=== PATIENT | male | born 1960 | race Two or more races ===

== ENCOUNTER 2023-11-20 08:44 | Outpatient (OUT) | payer OTHER, SELFPAY ==
--- NOTE | 2023-11-20 | XR_ITS ---
The [address] [address] Patient Name: EYAD VASQUEZ MRN: [id number] date: 1960 Sex: M Assigned Patient Location: Current Patient Location: Accession/Order Number: [id number] Exam Date: 11/20/2023 09:00 Report Date: 11/20/2023 09:38 At the request of: GURMEET OAKES Procedure: XR foot RT min 3V PROCEDURE: XR foot RT min 3V, XR ankle RT min 3V COMPARISON: None. HISTORY: RIGHT FOOT PAIN FINDINGS: BONES:No acute fracture or dislocation. Severe degenerative changes of the tibiotalar joint with marked bony remodeling qzzu-uo-mjzh articulation and subchondral mixed lytic and sclerotic changes. There is eversion of the hindfoot in relation to the tibial plafond measuring 27 degrees . Moderate hallux valgus. 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 Mild plantar enthesopathic spurring the calcaneus SOFT TISSUES:Negative. No visible soft tissue swelling. EFFUSION:None visible. OTHER: Negative. XR/XR foot RT min 3V IMPRESSION: Severe hindfoot degenerative changes with bony remodeling and eversion Electronically authenticated by: ALICJA ALEJANDRA Date: 11/20/2023 09:38
--- NOTE | 2023-11-20 | XR_ITS ---
The [address] [address] Patient Name: EYAD VASQUEZ MRN: [id number] date: 1960 Sex: M Assigned Patient Location: Current Patient Location: Accession/Order Number: [id number] Exam Date: 11/20/2023 09:00 Report Date: 11/20/2023 09:38 At the request of: GURMEET OAKES Procedure: XR ankle RT min 3V PROCEDURE: XR foot RT min 3V, XR ankle RT min 3V COMPARISON: None. HISTORY: RIGHT FOOT PAIN FINDINGS: BONES:No acute fracture or dislocation. Severe degenerative changes of the tibiotalar joint with marked bony remodeling enul-gk-utjv articulation and subchondral mixed lytic and sclerotic changes. There is eversion of the hindfoot in relation to the tibial plafond measuring 27 degrees . Moderate hallux valgus. 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 Mild plantar enthesopathic spurring the calcaneus SOFT TISSUES:Negative. No visible soft tissue swelling. EFFUSION:None visible. OTHER: Negative. XR/XR ankle RT min 3V IMPRESSION: Severe hindfoot degenerative changes with bony remodeling and eversion Electronically authenticated by: ALICJA ALEJANDRA Date: 11/20/2023 09:38
== END 2023-11-20 08:45 | disposition home or self-care (01) ==
LOC: EC 08:44
PROVIDERS: Visit Provider Physician Assistant
DX: M79.671 Pain in right foot (principal); M25.571 Pain in right ankle and joints of right foot; M19.071 Primary osteoarthritis, right ankle and foot
CPT/HCPCS: 73610; 73630

== ENCOUNTER 2023-12-24 08:18 | Outpatient (OUT) | payer OTHER, SELFPAY ==
--- NOTE | 2023-12-24 08:30 | CA_ITS ---
The [facility] Test Date: 2023-12-24 Pat Name: EYAD HOSKINS Department: Room: - Gender: Male Development Officer: : 1960 Requested By: Denisha Henson Order Number: [id number] Reading MD: ARACELI EMERY Interpretive Statements Biphasic doppler waveforms PVR waveforms with normal upstroke, amplitude and dicrotic notch Right: - no significant pressure gradient between cuffs - normal ART Left: - no significant pressure gradient between cuffs - normal ART Impression: Normal arterial evaluation of the lower extremities without hemodynamic impairment of the B/L lower extremity at rest. (right ART 1.12, left ART 1.16) Electronically Signed On 12-25-2023 15:16:07 EDT by ARACELI EMERY
--- NOTE | 2023-12-24 09:47 | CT_ITS ---
[place] [id number] Patient Name: EYAD HOSKINS MRN: [id number] date: 1960 Sex: M Assigned Patient Location: CARD Current Patient Location: CARD Accession/Order Number: [id number] Exam Date: 12/24/2023 09:55 Report Date: 12/24/2023 11:35 At the request of: GURMEET OAKES Procedure: CT ankle RT wo con EXAMINATION: CT ankle RT wo con HISTORY: Avascular Necrosis Right Talus, Right Ankle Arthritis COMPARISON: Plain x-ray 11/20/2023 TECHNIQUE: Multi-planar CT images were created without IV contrast. Dose reduction techniques were achieved by using automated exposure control and/or adjustment of mA and/or kV according to patient size and/or use of iterative reconstruction technique. FINDINGS: BONES: No acute fracture. Severe degenerative changes of the tibiotalar joint with bony remodeling partial talus collapse and marked subchondral cystic changes. There is 8 mm lateral displacement of the talus in relation to the tibial plafond and with eversion of the hindfoot in relation to the tibia and fibula. Additional degenerative changes of the mid and posterior talocalcaneal joint SOFT TISSUES: Diffuse soft tissue swelling EFFUSION: Tibiotalar joint effusion OTHER: Negative. CT/CT ankle RT wo con IMPRESSION: Marked degenerative changes of the hindfoot with bony remodeling and partial collapse of the talus Electronically authenticated by: ALICJA ALEJANDRA Date: 12/24/2023 11:35
== END 2023-12-24 08:19 | disposition home or self-care (01) ==
LOC: CARD 08:22
PROVIDERS: Visit Provider Physician Assistant
DX: M87.9 Osteonecrosis, unspecified (principal); R09.89 Other specified symptoms and signs involving the circulatory and respiratory systems
CPT/HCPCS: 73700; 93923

== ENCOUNTER 2024-04-27 08:55 | Outpatient (OUT) | payer OTHER, SELFPAY ==
--- NOTE | 2024-04-27 | XR_ITS ---
The [address] [address] Patient Name: EYAD HOSKINS MRN: [id number] date: 1960 Sex: M Assigned Patient Location: Current Patient Location: Accession/Order Number: [id number] Exam Date: 04/27/2024 08:55 Report Date: 04/27/2024 15:52 At the request of: GURMEET OAKES Procedure: XR ankle RT min 3V EXAM: XR ankle RT min 3V HISTORY: RIGHT ANKLE PAIN COMPARISON: CT right ankle study dated 12/24/2023 TECHNIQUE: 3 upright views of the right ankle were obtained. FINDINGS: Marked narrowing of the ankle joint with associated degenerative subchondral cystic changes and sclerosis. Approximately 1.2 cm posterior offset of the articular surface of the distal tibia in relation to the talus similar to the prior study. Interval narrowing between the distal fibula and the calcaneus with adjacent degenerative subchondral cystic changes and sclerosis. Small plantar calcaneal spur. No convincing evidence of acute fracture or dislocation. Moderate soft tissue swelling laterally with mild swelling medially. XR/XR ankle RT min 3V IMPRESSION: Right ankle study demonstrates marked degenerative changes similar to the prior exam. Follow-up as needed. Electronically authenticated by: LALITO ÁLVAREZ Date: 04/27/2024 15:52
--- OUTSIDE RECORDS SUMMARY | 2024-04-27 09:15 | XMS_ITS | CCD ---
Demographics Address [address] [place] [address] Preferred Language en Marital Status Single Congregational Affiliation Unknown Race Unknown Ethnic Group or Author Organization [facility] Inform ion Partnership [facility] Care Team Providers Care Technical Services Specialist Name Role Phone XIMENA KUMAR Admitting Unavailable XIMENA KUMAR Attending Unavailable [facility] Primary Care Unava ilable XIMENA KUMAR Consulting Unavailable CHEPE POZO Consulting Unavailable AngNitza Browning Primary Care Provider XIMENA KUMAR Attending Unavailable XIMENA KUMAR Attending Unavailable XIMENA KUMAR Attending Unavailable IRINA LEI Attending Unavailable NITZA BREAUX Referring Unavailable IRINA LEI Referring Unavailable XIMENA KUMAR Attending Unavailable XIMENA KUMAR Attending Unavailable XIMENA KUMAR Referring Unavailable XIMENA KUMAR Attending Unavailable XIMENA KUMAR Attending Unavailable XIMENA KUMAR Attending Unavailable Medications Current Medications Medication Drug Class(es) Dates Sig (Normalized) Sig (Original) amLODIPine 2.5 mg oral tablet (1 source) Dihydropyridine Calcium Channel Cynthia Start: 01-16-2023 take 1 tablet by mouth once daily amLODIPine (NORVASC) 2.5 mg tablet 1 tablet Orally Once a day for 30 days 0 01/16/2023 Active ferrous sulfate 325 mg oral tablet (1 source) Start: 01-16-2023 take 1 tablet by mouth three times weekly ferrous sulfate 325 (65 FE) mg tablet TAKE 1 TABLET BY MOUTH 3 TIMES A WEEK 0 01/16/2023 Active losartan potassium 25 mg oral tablet (1 source) Angiotensin 2 Receptor Cynthia Start: 11-21-2022 take 1 tablet by mouth once daily losartan (COZAAR) 25 mg tablet TAKE 1 TABLET BY MOUTH EVERY DAY FOR 30 DAYS 0 11/21/2022 Active meloxicam 15 mg oral tablet (1 source) Nonsteroidal Anti-inflammatory Drug Start: 01-19-2023 take 1 tablet by mouth once daily meloxicam (MOBIC) 15 mg tablet TAKE 1 TABLET BY MOUTH EVERY DAY FOR 30 DAYS 0 01/19/2023 Active omeprazole 40 mg delayed release oral capsule (1 source) Proton Pump Inhibitor omeprazole (PriLOSEC) 40 mg capsule TAKE 1 CAPSULE BY MOUTH 30 MINUTES BEFORE MORNING MEAL EVERY DAY FOR 30 DAYS Orally Once a day for 30 days 0 Active tamsulosin hydrochloride 0.4 mg oral capsule (1 source) alpha-Adrenergic Cynthia Start: 06-16-2023 take 1 capsule by mouth once daily tamsulosin (FLOMAX) 0.4 mg capsule TAKE 1 CAPSULE BY MOUTH NIGHTLY FOR 90 DAYS. 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; Translations: [OSTEOCHNDRT DISSECANS RT ANK JNT FT] Onset: 10-08-2021 Chronic Past or Other Problems Problem Classification Problem Date Documented Da te Episodic/Chronic Deficiency and other anemia (1 source) Anemia; Translations: [Anemia, unspecified] Onset: 0 07-17-2020 Episodic Gastrointestinal hemorrhage (5 sources) Lower gastrointestinal hemorrhage; Translations: [Gastrointestinal hemorrhage, unspecified] Onset: 0 07-14-2020 Episodic Inflammatory conditions of male genital organs (1 source) Orchitis; Translations: [Orchitis] Onset: 3 05-21-2023 Episodic Mood disorders (1 source) Mood disorders Onset: 0 07-21-2020 Other screening for suspected conditions (not mental disorders or infectious disease) (1 source) Raised prostate specific antigen; Translations: [Elevated prostate specific antigen [PSA]] Onset: 3 05-27-2023 Episodic Results Test Name Value Interpretation Reference Range Facil ity MRI ANKLE RT WO CONon 2021 MRI ANKLE RT WO CON EXAM: MRI ANKLE RT WO CON. HISTORY: Osteochondritis dissecans. Right ankle pain and swelling for 6 months. COMPARISON: None. TECHNIQUE: Multiplanar and multisequence imaging of the right ankle was performed without contrast. FINDINGS: Severe degenerative change/osteoarthritis involves the tibiotalar joint with extensive high-grade and full-thickness articular cartilage loss throughout a majority of the central, anterior and lateral aspect of the tibiotalar joint including involvement of the distal tibia and talar dome. There is a moderate to large tibiotalar joint effusion. Moderate to marked bone marrow edema is present in the distal tibia and the talus suspicious for stress response and/or reactive edema. No loose or unstable osteochondral fragment is identified involving the talar dome with cystic change in the talar dome. There is also moderate degenerative change of the posterior facet of the subtalar joint with joint space narrowing and spurring. Mild degenerative change is present throughout the midfoot. No acute fracture is visualized. There is mild bone marrow edema in the distal fibula and medial malleolus suspicious for reactive edema or stress response. The Achilles tendon is intact with a normal insertion onto the calcaneus. There is lateral dislocation of the peroneal tendons with the peroneal tendons located lateral to the distal fibula. No well-defined peroneal tendon tear is identified, however. Intermediate signal of the posterior tibialis tendon mild thickening of the tendon is consistent with mild to moderate tendinopathy. There is irregularity, fraying and likely low-grade partial thickness tearing of the posterior tibialis tendon in the inframalleolar portion. Moderate fluid tracks along the posterior tibialis tendon consistent with associated tenosynovitis. Flexor and extensor tendons otherwise appear intact. Several areas of corticated bony signal along the anterior and anteroinferior margin of the distal fibula are likely related to sequela of remote trauma. There is thickening, irregularity and increased signal of the anterior talofibular ligament consistent with a prior high-grade sprain. There is also evidence of a moderate prior sprain of the anteroinferior tibiofibular ligament as well as the calcaneofibular ligament with intermediate signal and thickening of the calcaneofibular ligament. There also appears to be evidence of a prior sprain of the deep fibers of the deltoid ligament. There is no cystic or solid mass in the region of the tarsal tunnel. There is no acute abnormality involving the plantar fascia. IMPRESSION: 1. There is severe degenerative change/osteoarthritis involving the tibiotalar joint with extensive high-grade and full-thickness articular cartilage loss and marked joint space narrowing with xryx-vp-sehv contact. 2. There is a moderate to large tibiotalar joint effusion with moderate to marked bone marrow edema in the distal tibia and talus suspicious for stress response and/or reactive edema. No loose or unstable osteochondral fragment is identified involving the talar dome. 3. There is mild to moderate tendinopathy with fraying and likely low-grade partial-thickness tearing of the inframalleolar portion of the posterior tibialis tendon with moderate associated tenosynovitis. 4. There is lateral dislocation of the peroneal tendons which are located lateral to the distal fibula. There is mild tenosynovitis involving the peroneal tendons. 5. Prior high-grade sprain of the anterior talofibular ligament as well as prior moderate-grade sprain of the calcaneofibular ligament and anteroinferior tibiofibular ligament. Electronically authenticated by: CHEPE POZO Date: 2021-10-08 14:08 [facility] Encounters Encounter Date Encounter Type Care Provider Facility Start: 04-15-2024 End: 04-15-2024 ambulatory XIMENA KUMAR Not Available Start: 03-11-2024 End: 03-11-2024 ambulatory XIMENA KUMAR Not Available Start: 02-19-2024 End: 02-19-2024 ambulatory XIMENA KUMAR Not Available Start: 02-05-2024 End: 02-05-2024 ambulatory XIMENA KUMAR Not Available Start: 11-25-2023 Telephone encounter Ivet Tamayo UNDERWRITING CONSULTANT-PUBLIC POLICY PROFESSOR Work Phone: [facility] Start: 11-11-2023 End: 11-11-2023 ambulatory IRINA LEI Not Available Start: 11-06-2023 End: 11-06-2023 ambulatory XIMENA KUMAR Not Available Start: 09-11-2023 End: 09-11-2023 ambulatory XIMENA KUMAR Not Available Start: 08-07-2023 End: 08-07-2023 ambulatory XIMENA KUMAR Not Available Start: 07-10-2023 End: 07-10-2023 ambulatory XIMENA KUMAR Not Available Start: 10-08-2021 End: 10-09-2021 ambulatory XIMENA KUMAR Facility: Plan of Treatment Date Care Activity Detail Author Start: 08-13-2024 Tobacco Counseling Tobacco Counseling [facility] Start: 05-21-2024 Adult BMI Screening Adult BMI Screening [facility] Start: 05-21-2024 Tobacco Screening Tobacco Screening [facility] Start: 04-25-2024 Influenza vaccination Influenza Vaccine [facility] Start: 04-25-2023 COVID-19 Vaccine ( season) COVID-19 Vaccine ( season) [facility] Start: 2011 Administration of varicella zoster vaccine Zoster (Shingles) Vaccine (1 of 2) [facility] Start: 1980 DTaP,Tdap and Td Vaccines (1 - Tdap) DTaP,Tdap and Td Vaccines (1 - Tdap) [facility] Start: 1979 Adult BMI Follow Up Plan Adult BMI Follow Up Plan [facility] Start: 1973 Depression Screening Depression Screening [facility] Immunizations Immunization Date Immunization Notes Care Provider Fa cility 05-22-2022 influenza virus vacc ine, unspecified formulation Ivet Tamayo UNDERWRITING CONSULTANT-PUBLIC POLICY PROFESSOR Work Phone: [facility] 07-14-2020 influenza, injectabl e, quadrivalent, preservative free Ivet Tamayo UNDERWRITING CONSULTANT-PUBLIC POLICY PROFESSOR Work Phone: [facility] 07-14-2020 pneumococcal polysaccharide vaccine, 23 valent Ivet Tamayo UNDERWRITING CONSULTANT-PUBLIC POLICY PROFESSOR Work Phone: [facility] Payers Date Payer Category Payer Medicaid [employer] HMO [id number] 2022-Present [phone] [address] [place] [address] [id number] 2019 Medicaid [id number] 1960 Unknown [id number] 1960 Unknown [id number] 1960 Unknown [id number] [id number] 1960 Unknown [id number] [id number] 1960 Unknown [id number] [id number] 1960 Unknown [id number] 2.16.840.1.612542.3.579.2.9 1960 Unknown [id number] [id number] 1960 Unknown [id number] [id number] 1960 Unknown [id number] 2.16.840.1.813325.3.579.2.9 1960 Unknown [id number] [id number] 1960 Unknown [id number] 2.16.840.1.163732.3.579.2.9 1960 Unknown [id number] [id number] 1960 Unknown [id number] [id number] 1958 Unknown [id number] Social History Date Type Detail Facility Start: 02-11-2023 Tobacco smoking stat [facility] Occasional tobacco smoker [facility] History of tobacco use Cigarette Smoker [facility] [place] Start: 10-05-2020 End: 02-11-2023 Cigarettes smoked current (pack per day) - Reported 1.5 [facility] Start: 02-11-2023 Tobacco use and exposure Smokeless tobacco non-user [facility] Start: 05-21-2023 Alcohol intake Current drinke r of alcohol (finding) [facility] Start: 07-14-2020 End: 02-11-2021 Social connection and isolation panel [facility] In a typical week, h ow many times do you talk on the telephone with family, friends, or neighbors? [facility] How often to you hav e a drink containing alcohol? 2-3 time sa week [facility] How many standard drinks containing alcohol do you have on a typical day? 10 or more [facility] How often do you hav e 6 or more drinks on 1 occasion? Daily or almost daily [facility] How hard is it for y ou to pay for the very basics like food, housing, medical care, and heating Somewhat hard [facility] Do you feel stress - tense, restless, nervous, or anxious, or unable to sleep at night because your mind is troubled all the time - these days [OSQ] To some extent [facility] Start: 02-11-2023 Tobacco Comment only when drinking P [facility] Start: 07-17-2020 Alcohol Comment mostly beer. H as not had a drink since last Friday. [facility] Start: 1960 Sex Assigned At Not on file [facility] Goals Date Patient Goal Desired Activity /State Personal health goal Comment on above: Formatting of this n ote might be different from the original. Evaluation of progress towards goal: Abstain from etoh use Formatting of this n ote might be different from the original. Evaluation of progress towards goal: Weekly AA attendance Personal health goal Comment on above: Formatting of this n ote might be different from the original. Evaluation of progress towards goal: home Note 11-25-2023 Telephone Encounter - Robyn Betancourt - 11/25/2023 2:48 PM EDT Note Date & Type Note Facility 11-25-2023 Miscellaneous Notes Formattin g of this note might be different from the original. Called [facility] as we received a screening colonoscopy referral from Nitza Plaza NP notes say that had last colonoscopy in [place]. But upon looking into patient's chart, last colonoscopy was 07/15/[address] Abrams with a 5 year recall. Spoke to Emmie at [facility] and informed her of the recall, she states that she will let Nitza Breaux NP know. documented in this encounter [facility] Telephone encounter Note 11-25-2023 Telephone Encounter - Robyn Betancourt - 11/25/2023 2:48 PM EDT Note Date & Type Note Facility 11-25-2023 Telephone encount er Note Called [facility] as we received a screening colonoscopy referral from Nitza Plaza NP notes say that had last colonoscopy in [place]. But upon looking into patient's chart, last colonoscopy was 07/15/[address] Abrams with a 5 year recall. Spoke to Emmie at [facility] and informed her of the recall, she states that she will let Nitza Breaux NP know. [facility] Instructions Note Date & Type Note Facility Instructions Not on filedocumented in this en counter [facility] Summary Purpose Family History No Family History Records FoundNo Family History Records Found Advance Directives No Advanced Directives Records FoundLatest Code Status on File Code Status Date Activated Date Inactivated Comments Full Code 07/18/2020 2:20 AM 07/22/2020 1:11 PM Code Status History Code Status Date Activated Date Inactivated Comments Full Code 07/17/2020 2:41 PM 07/18/2020 12:03 AM Full Code 07/14/2020 10:54 AM 07/16/2020 12:06 AM Additional Source Comments (unrecognized sect ion and content) No Status Records FoundNo Status Records Found INFORMATION SOURCE (unrecogn ized section and content) DATE CREATED AUTHOR 10/12/2021 [facility] DATE CREATED AUTHOR AUTHOR'S ORGANIZ ATION 04/17/2024 [facility] dical Specialists [employer] Care Teams (unrecognized sec tion and content) Technical Services Specialist Relationship Specialty Start Date End Date Nitza Breaux, UNDERWRITING CONSULTANT-PUBLIC POLICY PROFESSOR [address] [place] [id number] PCP - General Family Medicine 01/27/23 FOR RECORDS PERTAINING TO PATIENTS WHO ARE OR HAVE BEEN ENROLLED IN A CHEMICAL DEPENDENCY/SUBSTANCEABUSE PROGRAM, SOME INFORMATION MAY BE OMITTED. This clinical summary was aggregated from multiple sources. Caution should be exercised in using it in the provision of clinical care. This summary normalizes information from multiple sources, and as a consequence, information in this document may materially change the coding, format and clinical context of patient data. In addition, data may be omitted in some cases. CLINICAL DECISIONS SHOULD BE BASED ON THE PRIMARY CLINICAL RECORDS. [employer] [facility]. provides no warranty or guarantee of the accuracy or completeness of information in this document.
== END 2024-04-27 08:56 | disposition home or self-care (01) ==
LOC: EC 08:55
PROVIDERS: Visit Provider Physician Assistant
DX: M87.071 Idiopathic aseptic necrosis of right ankle (principal)
CPT/HCPCS: 73610

== ENCOUNTER 2024-06-22 09:35 | Outpatient (OUT) | payer OTHER, SELFPAY ==
--- OUTSIDE RECORDS SUMMARY | 2024-06-22 09:41 | XMS_ITS | CCD ---
Demographics Address [address] [place] [address] Home Phone Mobile Phone Preferred Language en Marital Status Unknown Sabianist Affiliation Unknown Race Unknown Ethnic Group or Author Organization [facility] Care Team Providers Care Feather Edger Name Role Phone PAPI GARDINER Admitting Unavailable PAPI GARDINER Attending Unavailable [facility] Primary Care Unava ilable PAPI GARDINER Consulting Unavailable POZOCHEPE HENRIQUEZ Consulting Unavailable Nitza Real Primary Care Provider PAPI GARDINER Attending Unavailable PAPI GARDINER Attending Unavailable PAPI GARDINER Attending Unavailable IRINA LEI Attending Unavailable NITZA BREAUX Referring Unavailable IRINA LEI Referring Unavailable PAPI GARDINER Attending Unavailable PAPI GARDINER Attending Unavailable PAPI GARDINER Referring Unavailable PAPI GARDINER Attending Unavailable PAPI GARDINER Attending Unavailable PAPI GARDINER Attending Unavailable Unallocated , [facility] Provider Primary Care Provi marga Medications Current Medications Medication Drug Class(es) Dates Sig (Normalized) Sig (Original) amLODIPine 2.5 mg oral tablet (2 sources) Dihydropyridine Calcium Channel Cynthia Start: 01-16-2023 take 1 tablet by mouth once daily amLODIPine (Norvasc) 2.5 MG tablet 1 tablet Orally Once a day for 30 days 01/16/2023 Active ciclopirox 80 mg/ml topical solution (1 source) Start: 04-15-2024 ciclopirox (Penlac) 8 % solution Indications: Onychomycosis Apply topically at bedtime 6 mL 3 04/15/2024 Active ferrous sulfate 325 mg oral tablet (2 sources) Start: 01-16-2023 take 1 tablet by mouth three times weekly ferrous sulfate 325 (65 Fe) MG tablet 1 tablet Orally Three times a Week for 30 days 01/16/2023 Active losartan potassium 25 mg oral tablet (2 sources) Angiotensin 2 Receptor Cynthia Start: 11-21-2022 take 1 tablet by mouth once daily losartan (Cozaar) 25 MG tablet TAKE 1 TABLET BY MOUTH EVERY DAY FOR 30 DAYS 11/21/2022 Active meloxicam 15 mg oral tablet (3 sources) Nonsteroidal Anti-inflammatory Drug Start: 04-28-2024 End: 05-31-2024 take 1 tablet by mouth once daily meloxicam (Mobic) 15 MG tablet Indications: DJD (degenerative joint disease), ankle and foot, left , DJD (degenerative joint disease), ankle and foot, right TAKE 1 TABLET BY MOUTH EVERY DAY 30 tablet 05/31/2024 Active Start: 01-19-2023 take 1 tablet by adithya th once daily meloxicam (MOBIC) 15 mg tablet TAKE 1 TABLET BY MOUTH EVERY DAY FOR 30 DAYS 0 01/19/2023 Active omeprazole 40 mg delayed release oral capsule (2 sources) Proton Pump Inhibitor omeprazole (PriLOSEC) [address] capsule TAKE 1 CAPSULE BY MOUTH 30 MINUTES BEFORE MORNING MEAL EVERY DAY FOR 30 DAYS Orally Once a day for 30 days Active tamsulosin hydrochloride 0.4 mg oral capsule (1 source) alpha-Adrenergic Cynthia Start: 3 take 1 capsule by mouth once daily tamsulosin (FLOMAX) 0.4 mg capsule TAKE 1 CAPSULE BY MOUTH NIGHTLY FOR 90 DAYS. 90 capsule 0 06/16/2023 Active Problems Active Problems Problem Classification Problem Date Documented Date Episodic/Chronic Osteoarthritis (2 sources) Degenerative joint disease of ankle AND/OR foot; Translations: [Primary osteoarthritis, left ankle and foot] 05-30-2024 Chronic Other bone disease and musculoskeletal deformities (4 [...] loss and marked joint space narrowing with [id number] contact. 2. There is a moderate to [...] authenticated by: CHEPE POZO Date: 2021-10-08 14:08 [facility] Encounters Encounter Date Encounter Type Care Provider Facility Start: 05-30-2024 End: 05-31-2024 Refill Papi Gardiner DPM Work Phone: [facility] Comment on above: DJD (degenerative darion int disease), ankle and foot, left; DJD (degenerative joint disease), ankle and foot, right Start: 04-15-2024 End: 04-15-2024 ambulatory PAPI GARDINER Not Available Start: 03-11-2024 End: 03-11-2024 ambulatory PAPI GARDINER Not Available Start: 02-19-2024 End: 02-19-2024 ambulatory PAPI GARDINER Not Available Start: 02-05-2024 End: 02-05-2024 ambulatory PAPI A ABDIFATAH Not Available Start: 11-25-2023 Telephone encounter Ivet Tamayo [facility] Work Phone: [facility] Start: 11-11-2023 End: 11-11-2023 ambulatory IRINA LEI Not Available Start: 11-06-2023 End: 11-06-2023 ambulatory PAPI GARDINER Not Available Start: 09-11-2023 End: 09-11-2023 ambulatory PAPI GARDINER Not Available Start: 08-07-2023 End: 08-07-2023 ambulatory PAPI GARDINER Not Available Start: 07-10-2023 End: 07-10-2023 ambulatory PAPI GARDINER Not Available Start: 10-08-2021 End: 10-09-2021 ambulatory PAPI GARDINER Facility: Plan of Treatment Date Care Activity Detail Author Start: 08-13-2024 Tobacco Counseling Tobacco Counseling [facility] Start: 05-21-2024 Adult BMI Screening Adult BMI Screening [facility] Start: 05-21-2024 Tobacco Screening Tobacco Screening [facility] Start: 04-25-2024 Influenza vaccination [facility] Start: 04-25-2023 COVID-19 Vaccine ( season) COVID-19 Vaccine ( season) [facility] Start: 2011 Administration of varicella zoster vaccine Zoster (Shingles) Vaccine (1 of 2) [facility] Start: 1980 DTaP,Tdap and Td Vaccines (1 - Tdap) DTaP,Tdap and Td Vaccines (1 - Tdap) [facility] Start: 1979 Adult BMI Follow Up Plan Adult BMI Follow Up Plan [facility] Start: 1973 Depression Screening Depression Screening [facility] Start: 1961 Screening for malignant neoplasm of colon [facility] Immunizations Immunization Date Immunization Notes Care Provider Fa cility 09-06-2023 zoster vaccine recombinant Papi Gardiner DPM Work Phone: [facility] 07-06-2023 zoster vaccine recombinant Papi Gardiner DPM Work Phone: [facility] 05-22-2022 influenza, injectabl e, quadrivalent, preservative free Papi Abdifatah DPM Work Phone: [facility] 05-22-2022 influenza virus vacc ine, unspecified formulation Ivet Tamayo [facility] Work Phone: [facility] 07-14-2020 influenza, injectabl e, quadrivalent, preservative free Ivet Tamayo [facility] Work Phone: [facility] 07-14-2020 pneumococcal polysaccharide vaccine, 23 valent Ivet Tamayo [facility] Work Phone: [facility] Payers Date Payer Category Payer Medicaid [id number] 2019 Medicaid [id number] 1960 Unknown [id number] 2.16.84 [id number] 1960 Unknown [id number] 2.16.84 [id number] 1960 Unknown [id number] 2.16.84 [id number] 1961 Unknown [id number] 2.16.84 0.1.672641.3.579.2.1259 1961 Unknown [id number] 2.16.84 0.1.003047.3.579.2.1259 1961 Unknown [id number] 2.16.84 0.1.368706.3.579.2.1259 1961 Unknown [id number] 2.16.84 0.1.296721.3.579.2.1259 1961 Unknown [id number] 2.16.84 0.1.041783.3.579.2.1259 1961 Unknown [id number] 2.16.84 0.1.195374.3.579.2.1259 1961 Unknown [id number] 2.16.84 0.1.381470.3.579.2.1259 1961 Unknown [id number] 2.16.84 0.1.093802.3.579.2.1259 1961 Unknown [id number] 2.16.840 .[id number] 1961 Unknown [id number] 2.16.840 .[id number] 1959 Unknown [id number] Social History Date Type Detail Facility Start: 02-11-2023 End: 05-29-2023 Tobacco smoking status [facility] Occasional tobacco smoker [facility] History of tobacco use Cigarette Smoker [facility] Start: 02-11-2023 End: 04-15-2024 Cigarettes smoked current (pack per day) - Reported 1.5 [facility] Start: 02-11-2023 End: 05-29-2023 Tobacco use and exposure Smokeless tobacco non-user [facility] Start: 05-21-2023 End: 04-15-2024 Alcohol intake Current drinker of alcohol (finding) [facility] Start: 07-14-2020 End: 04-15-2024 Social connection and isolation panel [facility] In a typical week, how many times do you talk on the telephone with family, friends, or neighbors? Patient declined [facility] How often to you hav e a drink containing alcohol? 2-3 time sa week [facility] How many standard drinks containing alcohol do you have on a typical day? 10 or more [facility] How often do you hav e 6 or more drinks on 1 occasion? Daily or almost daily [facility] How hard is it for you to pay for the very basics like food, housing, medical care, and heating Somewhat hard [facility] Do you feel stress - tense, restless, nervous, or anxious, or unable to sleep at night because your mind is troubled all the time - these days [OSQ] To some extent [facility] Start: 02-11-2023 Tobacco Comment only when drinking [employer] [facility] Start: 07-17-2020 Alcohol Comment mostly beer. H as not had a drink since last Friday. [facility] Start: 1960 Sex Assigned At Not on file [employer] NEGATED: Highlighted rowStart: NINF History of tobacco use Passive smoker [facility] Goals Date Patient Goal Desired Activity /State [...] might be different from the original. Called [facility] as we received a screening colonoscopy referral from Nitza Plaza NP notes say that had last colonoscopy in [place]. But upon looking into patient's chart, last colonoscopy was 07/15/[address] Abrams with a 5 year recall. Spoke to Emmie at [facility] and informed her of the recall, she states that she will let Nitza Breaux NP know. documented in this encounter [facility] Telephone encounter Note 11-25-2023 Telephone Encounter - Robyn Betancourt - 11/25/2023 2:48 PM EDT Note Date & Type Note Facility 11-25-2023 Telephone encount er Note Called [facility] as we received a screening colonoscopy referral from Nitza Plaza NP notes say that had last colonoscopy in [place]. But upon looking into patient's chart, last colonoscopy was 07/15/[address] Abrams with a 5 year recall. Spoke to Emmie at [facility] and informed her of the recall, she states that she will let Nitza Breaux NP know. [facility] Evaluation note Note Date & Type Note Facility Evaluation note Diagnosis DJD (degenerative joint disease), ankle and foot, left DJD (degenerative joint disease), ankle and foot, right documented in this encounter [facility] Instructions Note Date & Type Note Facility Instructions Not on filedocumented in this en counter [facility] Summary Purpose Family History No Family History Records FoundNo Family History Records Found Advance Directives Latest Code Status on File Code Status Date [...] and content) DATE CREATED AUTHOR 10/12/2021 [facility] DATE CREATED AUTHOR AUTHOR'S ORGANIZ ATION 04/17/2024 [facility] EP[employer] Care Teams (unrecognized sec tion and content) Feather Edger Relationship Specialty Start Date End Date Nitza Breaux, [facility] [address] [place] [address] PCP - General Family Medicine 01/27/23 Feather Edger Relationship Specialty Start Date End Date Unallocated, Lit Brunson MD [address] [place] [address] PCP - General Family Medicine 08/07/23 Reason for Visit (unrecogniz ed section and content) Reason Comments Med Refill FOR RECORDS PERTAINING TO PATIENTS WHO ARE [...] BE BASED ON THE PRIMARY CLINICAL RECORDS. [employer] [facility]. provides no warranty or guarantee of the accuracy or completeness of information in this document.
--- NOTE | 2024-06-22 09:49 | ECG_ITS ---
[facility] Test Date: 2024-06-22 Pat Name: EYAD HOSKINS Department: Room: - Gender: Male [employer]: : 1960 Requested By: JG CARRASQUILLO Order Number: [id number] Reading MD: ARACELI EMERY Measurements Intervals [place] Rate: 62 P: 42 TN: 192 QRS: 35 QRSD: 89 T: 47 QT: 384 QTc: 391 Interpretive Statements SINUS RHYTHM No previous ECG available for comparison Electronically Signed On 06-22-2024 23:03:27 EDT by ARACELI EMERY
[2024-06-22 11:29] LABS: Basophils Percent Auto 0.6 % (0.2-2.0); Eosinophils Absolute Auto 0.3 10^3/uL (0.0-0.7); Hemoglobin 15.1 g/dL (14.0-18.0); Immature Granulocytes Abs Auto 0.03 10^3/uL (0.00-0.03); Immature Granulocytes Pct Auto 0.6 % (0.0-0.5); Lymphocytes Percent Auto 20.6 % (20.5-60.0); Mean Corpuscular HGB Conc 33.6 g/dL (29.9-35.2); Mean Corpuscular Hemoglobin 32.7 pg (25.9-34.0); Mean Corpuscular Volume 97.4 fL (80.0-94.0); Mean Platelet Volume 9.9 fL (9.5-13.5); Monocytes Absolute Auto 0.4 10^3/uL (0.3-0.8); Monocytes Percent Auto 8.6 % (1.7-12.0); Neutrophils Absolute Auto 3.2 10^3/uL (1.4-6.5); Neutrophils Percent Auto 63.6 % (43.0-75.0); Platelet Count 169 10^3/uL (150-450); Red Blood Count 4.62 10^6/uL (4.70-6.10); Red Cell Distribution Width 12.9 % (11.0-15.0)
[2024-06-22 11:44] LABS: Anion Gap 11.7; Carbon Dioxide 29.1 mmol/L (21.0-32.0); Chloride 105 mmol/L (98-107); Estimated GFR (African America >60 (>=60 mL/min/1.73m^2); Estimated GFR (Non-African Ame >60 (>=60 mL/min/1.73m^2); Glucose 83 mg/dL (74-106); Potassium 4.8 mmol/L (3.5-5.1); Sodium 141 mmol/L (136-145)
--- NOTE | 2024-06-22 12:13 | P.GSHP_ITS ---
History of Present Illness History of Present Illness Chief complaint: primary osteoarthritis right ankle Narrative: Patient presents for preadmission testing. The patient is Icelandic speaking and an retail performance specialist is used for the entirety of the visit. The patient reports a long history of right ankle and foot pain with instability. He wears a brace, uses a cane, and takes meloxicam with some relief. He denies any numbness, tingling, or any other complaints. Review of Systems ROS Narrative REVIEW OF SYSTEMS: Negative except as stated in HPI, ten or more systems reviewed. Constitutional: No fever, chills, weakness ENT: No sore throat or epistaxis Cardiovascular: No edema, chest pain, palpitations, or activity intolerance Respiratory: No shortness of breath, cough, or wheezing Gastrointestinal: No abdominal pain, constipation, diarrhea, or vomiting Genitourinary: No dysuria or hematuria Neurological: No numbness, tingling, weakness, or headache Psychiatric: No mood changes [facility] Medical History (Updated 06/22/24 @ 11:28 by Sallie Fisher NP) Idiopathic aseptic necrosis of right ankle ?M87.071 - Idiopathic aseptic necrosis of right ankle (ICD-10) Primary osteoarthritis, right ankle and foot ?M19.071 - Primary osteoarthritis, right ankle and foot (ICD-10) Contracture, right ankle ?M24.571 - Contracture, right ankle (ICD-10) Alcoholism in recovery ?F10.21 - Alcohol dependence, in remission (ICD-10) Acquired hallux interphalangeus of right foot ?M20.11 - Hallux valgus (acquired), right foot (ICD-10) Dislocation of metatarsophalangeal joint of right lesser toe(s), initial encounter ?S93.124A - Dislocation of metatarsophalangeal joint of right lesser toe(s), initial encounter (ICD-10) Hemarthrosis ?M25.00 - Hemarthrosis, unspecified joint (ICD-10) Instability of metatarsophalangeal joint of right foot ?M25.374 - Other instability, right foot (ICD-10) Acquired valgus deformity of right ankle ?M21.071 - Valgus deformity, not elsewhere classified, right ankle (ICD-10) Right ankle pain ?M25.571 - Pain in right ankle and joints of right foot (ICD-10) Aseptic necrosis ?M87.00 - Idiopathic aseptic necrosis of unspecified bone (ICD-10) Syncope (2019) ?R55 - Syncope and collapse (ICD-10) Anemia ?D64.9 - Anemia, unspecified (ICD-10) Bloody diarrhea (2019) ?R19.7 - Diarrhea, unspecified (ICD-10) GERD (gastroesophageal reflux disease) ?K21.9 - Gastro-esophageal reflux disease without esophagitis (ICD-10) Hypertension ?I10 - Essential (primary) hypertension (ICD-10) Surgical History (Updated 06/22/24 @ 10:42 by Sallie Fisher NP) History of colonoscopy (2019) ?Z98.890 - Other specified postprocedural states (ICD-10) Family History (Updated 06/22/24 @ 10:42 by Sallie Fisher NP) Other Family history of diabetes mellitus Social History (Updated 06/22/24 @ 10:28 by Sallie Fisher NP) Within the past year, how often did you have a drink containing alcohol: 2-4 times a month Smoking status: Current some day smoker Non-prescribed substance use: denies use Highest level of school completed/degree received: 6th grade Meds Home Medications and Allergies Home Medications ?Medication ?Instructions ?Recorded ?Confirmed ?Type amlodipine 5 mg tablet 5 mg PO DAILY 06/22/24 06/22/24 History ferrous sulfate 325 mg (65 mg 325 mg PO .three times a week 06/22/24 06/22/24 History iron) tablet losartan 50 mg tablet 50 mg PO DAILY 06/22/24 06/22/24 History meloxicam 15 mg tablet 15 mg PO DAILY 06/22/24 06/22/24 History Allergies Allergy/AdvReac Type Severity Reaction Status Date / Time No Known Drug Allergies Allergy Verified 06/22/24 10:21 Exam Narrative Exam Narrative: Constitutional: Awake, alert, comfortable, well-appearing, nontoxic, interactive, vital signs as charted Head: Normocephalic, atraumatic Neck: Supple, normal appearance, normal range of motion, no meningeal signs, no lymphadenopathy Respiratory: No respiratory distress, breath sounds clear Cardiovascular: Regular rate and rhythm, strong and regular heart tones Musculoskeletal: Patient ambulates with an antalgic gait utilizing a cane, brace intact to the right ankle Skin: No rashes or induration, no lesions, only visible skin inspected Neuro: No neurological deficits, normal sensation Psychiatric: Oriented ?3, normal affect Assessment and Plan Assessment and Plan (1) Acquired valgus deformity of right ankle: (2) Right ankle pain: (3) Contracture, right ankle: (4) Primary osteoarthritis, right ankle and foot: (5) Idiopathic aseptic necrosis of right ankle: Plan Right ankle and subtalar joint fusion with soft tissue balancing and bone graft as needed scheduled with Dr. Mariee July 08, 2024.
== END 2024-06-22 09:36 | disposition home or self-care (01) ==
LOC: PST 09:37
PROVIDERS: Nurse Practitioner; Visit Provider Podiatrist Foot & Ankle Surgery
DX: Z01.810 Encounter for preprocedural cardiovascular examination (principal); Z01.812 Encounter for preprocedural laboratory examination; Z01.818 Encounter for other preprocedural examination; M19.071 Primary osteoarthritis, right ankle and foot; M21.071 Valgus deformity, not elsewhere classified, right ankle
CPT/HCPCS: 36415; 80048; 85025; 93005; G0463

== ENCOUNTER 2024-07-07 07:40 | Outpatient (RCR) | payer OTHER, SELFPAY | END 2024-07-08 13:44 | disposition home or self-care (01) | LOC: PT 07:40 | PROVIDERS: Visit Provider Podiatrist Foot & Ankle Surgery | DX: Z98.1 Arthrodesis status (principal) | CPT/HCPCS: 97116 ==

== ENCOUNTER 2024-07-08 06:26 | Day surgery (SDC) | payer OTHER, SELFPAY ==
[2024-06-22 11:16] VITALS: BP 178/112; PULSE 64; TEMP 36.3; O2SAT 95; BMI 34.1
[2024-07-08] VITALS (15 sets, daily range): BP systolic 108–169; BP diastolic 70–106; PULSE 80–91; TEMP 36.1–36.9; O2SAT 91–95; BMI 34.1
--- NOTE | 2024-07-08 | FL_ITS ---
[address] [address] Patient Name: EYAD HOSKINS MRN: [id number] date: 1960 Sex: M Assigned Patient Location: SURGOUT Current Patient Location: [facility] Accession/Order Number: [id number] Exam Date: 07/08/2024 12:45 Report Date: 07/14/2024 11:41 At the request of: JG CARRASQUILLO Procedure: FL fluoroscopy <1hr NON-READ EXAM: FL fluoroscopy <1hr NON-READ HISTORY: TECHNIQUE: FINDINGS: Please see Operative Report. Electronically authenticated by: RADIOLOGIST NO Date: 07/14/2024 11:41
--- OUTSIDE RECORDS SUMMARY | 2024-07-08 06:30 | XMS_ITS | CCD ---
Demographics Address [address] [place] [address] Home Phone Mobile Phone Preferred Language en Marital Status Unknown Baptism Affiliation Unknown Race Unknown Ethnic Group or Author Organization [facility] Care Team Providers Care Junior Project Coordinator Name Role Phone PAPI GARDINER Admitting Unavailable PAPI GARDINER Attending Unavailable [facility] Primary Care Unava ilable PAPI GARDINER Consulting Unavailable POZOCHEPE HENRIQUEZ Consulting Unavailable Anglim Nitza FORD Primary Care Provider PAPI GARDINER Attending Unavailable PAPI GARDINER Attending Unavailable PAPI GARDINER Attending Unavailable RUSIRINA DENNEY Attending Unavailable ANGNITZA THORNTON Referring Unavailable RUSHERIRINA Referring Unavailable PAPI GARDINER Attending Unavailable PAPI GARDINER Attending Unavailable ABDIFATAH, PAPI Campbell Referring Unavailable PAPI GARDINER Attending Unavailable ABDIFATAH, PAPI Campbell Attending Unavailable PAPI GARDINER Attending Unavailable Unallocated MD, Noms Provider Primary Care Provi marga JOCELYN, USHA Referring Unavailable ANGLIM, NITZA A Primary Care Unavailable JOCELYN, USHA Referring Unavailable ANGLIM, NITZA A Primary Care Unavailable Medications Current Medications Medication Drug Class(es) Dates Sig (Normalized) Sig (Original) amLODIPine 2.5 mg oral tablet (3 sources) Dihydropyridine Calcium Channel Cynthia Start: 01-16-2023 take 1 tablet by mouth once daily amLODIPine (Norvasc) 2.5 MG tablet 1 tablet Orally Once a day for 30 days 01/16/2023 Active ciclopirox 80 mg/ml topical solution (2 sources) Start: 04-15-2024 ciclopirox (Penlac) 8 % solution Indications: Onychomycosis Apply topically at bedtime 6 mL 3 04/15/2024 Active ferrous sulfate 325 mg oral tablet (3 sources) Start: 01-16-2023 take 1 tablet by mouth three times weekly ferrous sulfate 325 (65 Fe) MG tablet 1 tablet Orally Three times a Week for 30 days 01/16/2023 Active losartan potassium 25 mg oral tablet (3 sources) Angiotensin 2 Receptor Cynthia Start: 11-21-2022 take 1 tablet by mouth once daily losartan (Cozaar) 25 MG tablet TAKE 1 TABLET BY MOUTH EVERY DAY FOR 30 DAYS 11/21/2022 Active meloxicam 15 mg oral tablet (5 sources) Nonsteroidal Anti-inflammatory Drug Start: 07-05-2024 take 1 tablet by mouth once daily meloxicam (Mobic) 15 MG tablet Indications: DJD (degenerative joint disease), ankle and foot, left , DJD (degenerative joint disease), ankle and foot, right TAKE 1 TABLET BY MOUTH EVERY DAY 30 tablet 07/05/2024 Active Start: 04-28-2024 End: 07-05-2024 take 1 tablet by mouth once daily meloxicam (Mobic) 15 MG tablet Indications: DJD (degenerative joint disease), ankle and foot, left , DJD (degenerative joint disease), ankle and foot, right TAKE 1 TABLET BY MOUTH EVERY DAY 30 tablet 05/31/2024 07/05/2024 Discontinued Start: 01-19-2023 take 1 tablet by adithya th once daily meloxicam (MOBIC) 15 mg tablet TAKE 1 TABLET BY MOUTH EVERY DAY FOR 30 DAYS 0 01/19/2023 Active omeprazole 40 mg delayed release oral capsule (3 sources) Proton Pump Inhibitor omeprazole (PriLOSEC) [address] capsule TAKE 1 CAPSULE BY MOUTH 30 MINUTES BEFORE MORNING MEAL EVERY DAY FOR 30 DAYS Orally Once a day for 30 days Active tamsulosin hydrochloride 0.4 mg oral capsule (1 source) alpha-Adrenergic Cynthia Start: take 1 capsule by mouth once daily tamsulosin (FLOMAX) 0.4 mg capsule TAKE 1 CAPSULE BY MOUTH NIGHTLY FOR 90 DAYS. 90 capsule 0 06/16/2023 Active Problems Active Problems Problem Classification Problem Date Documented Date Episodic/Chronic Osteoarthritis (4 sources) Degenerative joint disease of ankle AND/OR [...] Name Value Interpretation Reference Range Facil ity XR CHEST 2 VWSon 07-01-2024 XR CHEST 2 VWS XR CHEST 2 VWS History: Preoperative exam. History of GI bleed. Anemia. Procedure: 2 view PA and Lateral chest radiograph. Comparison: 01/27/2023 Findings: The heart and lungs show no acute findings, and the mediastinum and lilli are grossly negative . No pneumothorax. Impression: No acute pulmonary process. Finalized by Chevy Benjamin MD on 07/01/2024 9:[address] [facility] MRI ANKLE RT WO CONon 2021 MRI [...] loss and marked joint space narrowing with [id number] contact. 2. There is a moderate to [...] and anteroinferior tibiofibular ligament. Electronically authenticated by: CHEEP POZO Date: 2021-10-08 14:08 Normal [facility] Encounters Encounter Date Encounter Type Care Provider Facility Start: 07-04-2024 End: 07-05-2024 Refill Papi Gardiner DPM Work Phone: [facility] Comment on above: DJD (degenerative darion int disease), ankle and foot, left; DJD (degenerative joint disease), ankle and foot, right Start: 07-01-2024 End: 07-01-2024 ambulatory [facility] Start: 07-01-2024 Encounter for other preprocedural examination [facility] Start: 05-30-2024 End: 05-31-2024 Refill Papi Gardiner DPM Work Phone: [facility] Comment on above: DJD (degenerative darion int disease), ankle and foot, left; DJD (degenerative joint disease), ankle and foot, right Start: 04-15-2024 End: 04-15-2024 ambulatory PAPI GARDINER Not Available Start: 03-11-2024 End: 03-11-2024 ambulatory PAPI GARDINER Not Available Start: 02-19-2024 End: 02-19-2024 ambulatory PAPI GARDINER Not Available Start: 02-05-2024 End: 02-05-2024 ambulatory PAPI GARDINER Not Available Start: 11-25-2023 Telephone encounter Ivet FORD Work Phone: [facility] Start: 11-11-2023 End: 11-11-2023 ambulatory IRINA LEI Not Available Start: 11-06-2023 End: 11-06-2023 ambulatory PAPI GARDINER Not Available Start: 09-11-2023 End: 09-11-2023 ambulatory PAPI Campbell ABDIFATAH Not Available Start: 08-07-2023 End: 08-07-2023 ambulatory PAPI A ABDIFATAH Not Available Start: 07-10-2023 End: 07-10-2023 ambulatory PAPI Campbell ABDIFATAH Not Available Start: 10-08-2021 End: 10-09-2021 ambulatory PAPI ABDIFATAH Facility: Plan of Treatment Date Care Activity Detail Author Start: 08-13-2024 Tobacco Counseling Tobacco Counseling [facility] Start: 05-21-2024 Adult BMI Screening Adult BMI Screening [facility] Start: 05-21-2024 Tobacco Screening Tobacco Screening [facility] Start: 04-25-2024 Influenza vaccination [facility] Start: 04-25-2023 COVID-19 Vaccine ( season) COVID-19 Vaccine ( season) [facility] Start: 2011 Administration of varicella zoster vaccine Zoster (Shingles) Vaccine (1 of 2) [facility] Start: 1980 DTaP,Tdap and Td Vaccines (1 - Tdap) DTaP,Tdap and Td Vaccines (1 - Tdap) [facility] Start: 1979 Adult BMI Follow Up Plan Adult BMI Follow Up Plan [facility] Start: 1973 Depression Screening Depression Screening [facility] Start: 1961 Screening for malignant neoplasm of colon [facility] Immunizations Immunization Date Immunization Notes Care Provider Becca staples 09-06-2023 zoster vaccine recombinant Papi Abdifatah DPM Work Phone: [facility] 07-06-2023 zoster vaccine recombinant Papi Abdifatah DPM Work Phone: [facility] 05-22-2022 influenza, injectabl e, quadrivalent, preservative free Papi Gardiner DPM Work Phone: [facility] 05-22-2022 influenza virus vacc ine, unspecified formulation Ivet Tamayo PIER WORKER-LICENSING MANAGER Work Phone: [facility] 07-14-2020 influenza, injectabl e, quadrivalent, preservative free Ivet Tamayo PIER WORKER-LICENSING MANAGER Work Phone: [facility] [employer] [facility] 07-14-2020 pneumococcal polysaccharide vaccine, 23 valent Ivet Tamayo PIER WORKER-LICENSING MANAGER Work Phone: [facility] Payers Date Payer Category Payer Medicaid [id number] 2019 Private Health Insurance [facility] MEDICAID [id number] 2019 Medicaid [id number] 1960 Unknown [id number] [id number]. 593 1960 Unknown [id number] 2.16.840.1.763042.3.579.2. 1258 1961 Unknown [id number] 2.16.840.1.859377.3.579.2. 1258 1961 Unknown [id number] 2.16.840.1.955562.3.579.2. 1259 1961 Unknown [id number] 2.16.840.1.905310.3.579.2. 1258 1961 Unknown [id number] 2.16.840.1.290885.3.579.2. 1259 1961 Unknown [id number] 2.16.840.1.907961.3.579.2. 1259 1961 Unknown [id number] 2.16.840.1.717925.3.579.2. 1259 1961 Unknown [id number] 2.16.840.1.233063.3.579.2. 1259 1961 Unknown [id number] 2.16.840.1.986624.3.579.2. 1259 1961 Unknown [id number] 2.16.840.1.572498.3.579.2. 1259 1961 Unknown [id number] 2.16.840.1.566967.3.579.2. 1259 1961 Unknown [id number] 2.16.840.1.398770.3.579.2. 1259 1961 Unknown [id number] 2.16.840.1.236833.3.579.2. 1286 1961 Unknown [id number] 2.16.840.1.181598.3.579.2. 1286 1959 Unknown [id number] Social History Date Type Detail Facility Start: 02-11-2023 End: 05-29-2023 Tobacco smoking status NCIS Occasional tobacco smoker [facility] History of tobacco use Cigarette Smoker [facility] Start: 02-11-2023 End: 04-15-2024 Cigarettes smoked current (pack per day) - Reported 1.5 [facility] Start: 02-11-2023 End: 05-29-2023 Tobacco use and exposure Smokeless tobacco non-user [facility] Start: 05-21-2023 End: 04-15-2024 Alcohol intake Current drinker of alcohol (finding) [facility] Start: 07-14-2020 End: 04-15-2024 Social connection and isolation panel [facility] In a typical week, how many times do you talk on the telephone with family, friends, or neighbors? Patient declined [facility] How often to you hav e a drink containing alcohol? 2-3 time sa week [facility] How many standard drinks containing alcohol do you have on a typical day? 10 or more [facility] How often do you hav e 6 or more drinks on 1 occasion? Daily or almost daily [facility] [employer] [facility] How hard is it for you to pay for the very basics like food, housing, medical care, and heating Somewhat hard [facility] [employer] [facility] Do you feel stress - tense, restless, nervous, or anxious, or unable to sleep at night because your mind is troubled all the time - these days [OSQ] To some extent [facility] Start: 02-11-2023 Tobacco Comment only when drinking P [email or web address] [facility] Start: 07-17-2020 Alcohol Comment mostly beer. H as not had a drink since last Friday. [employer] [facility] Start: 1960 Sex Assigned At Not on file P [employer] NEGATED: Highlighted rowStart: NINF History of tobacco [...] might be different from the original. Called [facility] as we received a screening colonoscopy referral from Nitza Plaza NP notes say that had last colonoscopy in [place]. But upon looking into patient's chart, last colonoscopy was 07/15/[address] Abrams with a 5 year recall. Spoke to Emmie at [facility] and informed her of the recall, she states that she will let Nitza Duran NP know. documented in this encounter [facility] Telephone encounter Note 11-25-2023 Telephone Encounter - Robyn Betancourt - 11/25/2023 2:48 PM EDT Note Date & Type Note Facility 11-25-2023 Telephone encount er Note Called [facility] as we received a screening colonoscopy referral from Nitza Plaza NP notes say that had last colonoscopy in [place]. But upon looking into patient's chart, last colonoscopy was 07/15/[address] Abrams with a 5 year recall. Spoke to Emmie at [facility] and informed her of the recall, she states that she will let Nitza Duran NP know. [facility] Evaluation note Note Date & Type Note Facility Evaluation note Diagnosis DJD (degenerative joint disease), ankle and foot, left DJD (degenerative joint disease), ankle and foot, right documented in this encounter [facility] Evaluation note Note Date & Type Note Facility Evaluation note Diagnosis DJD (degenerative joint disease), ankle and foot, left DJD (degenerative joint disease), ankle and foot, right documented in this encounter [facility] Instructions Note Date & Type Note Facility Instructions Not on filedocumented in this en counter [facility] Summary Purpose Family History No Family History Records FoundNo Family History Records FoundNo Family History Records [...] content) No Status Records FoundNo Status Records FoundNo Status Records Found INFORMATION SOURCE (unrecogn ized section and content) DATE CREATED AUTHOR 10/12/2021 [facility] DATE CREATED AUTHOR AUTHOR'S ORGANIZ ATION 04/17/2024 [facility] EPIC DATE CREATED AUTHOR AUTHOR'S ORGANIZ ATION 07/03/2024 [facility] Care Teams (unrecognized sec tion and content) Junior Project Coordinator Relationship Specialty Start Date End Date Nitza Duran, PIER WORKER-LICENSING MANAGER [address] [place] [address] PCP - General Family Medicine 01/27/23 Junior Project Coordinator Relationship Specialty Start Date End Date Unallocated, Lit Brunson MD [address] [place] [address] PCP - General Family Medicine 08/07/23 Junior Project Coordinator Relationship Specialty Start Date End Date Unallocated, Lit Brunson MD [address] [place] [address] PCP - General Family Medicine 08/07/23 Reason [...] BE BASED ON THE PRIMARY CLINICAL RECORDS. [employer]. provides no warranty or guarantee of the accuracy or completeness of information in this document.
[2024-07-08 06:41] LABS: Basophils Percent Auto 0.8 % (0.2-2.0); Eosinophils Absolute Auto 0.4 10^3/uL (0.0-0.7); Eosinophils Percent Auto 7.4 % (0.9-7.0); Hematocrit 44.7 % (42.0-54.0); Hemoglobin 15.2 g/dL (14.0-18.0); Immature Granulocytes Abs Auto 0.04 10^3/uL (0.00-0.03); Immature Granulocytes Pct Auto 0.8 % (0.0-0.5); Mean Corpuscular Hemoglobin 32.4 pg (25.9-34.0); Mean Corpuscular Volume 95.3 fL (80.0-94.0); Mean Platelet Volume 9.2 fL (9.5-13.5); Monocytes Absolute Auto 0.5 10^3/uL (0.3-0.8); Monocytes Percent Auto 9.7 % (1.7-12.0); Neutrophils Absolute Auto 2.8 10^3/uL (1.4-6.5); Neutrophils Percent Auto 59.3 % (43.0-75.0); Platelet Count 199 10^3/uL (150-450); Red Blood Count 4.69 10^6/uL (4.70-6.10); Red Cell Distribution Width 12.2 % (11.0-15.0); White Blood Count 4.7 10^3/uL (4.0-11.0)
[2024-07-08 07:00] LABS: Glucometer 80 mg/dL (74-106)
[2024-07-08] MEDS: LACTATED RINGER'S SOLUTION 1,000 ML 50 ML IV ×3 (07:11→12:57)
--- NOTE | 2024-07-08 07:50 | PC.NURSE ---
Patient consented. Timeout performed per protocol at 0735. Patient positioned and placed on O2 and monitor. Patient medicated by Roddy BENAVIDES. Bedside ultrasound used to perform location site for block. Popliteal block started at 0736 and completed by 0742. Saphenous block started at 0742 and ended at 0745. Patient tolerated procedure well. Continues with monitors on and O2 in place until taken to OR. Call light within reach.
[2024-07-08] MEDS: CEFAZOLIN SODIUM 2 GM/50 ML D5W PREMIX IV (08:04)
[2024-07-08] MEDS: THROMBI-GEL SIZE 40 HEMOSTAT 1 EACH TOPICAL (10:27)
--- NOTE | 2024-07-08 11:18 | XR_ITS ---
The [address] [address] Patient Name: EYAD HOSKINS MRN: [id number] date: 1960 Sex: M Assigned Patient Location: [facility] Current Patient Location: Accession/Order Number: [id number] Exam Date: 07/08/2024 13:50 Report Date: 07/10/2024 08:02 At the request of: JG CARRASQUILLO Procedure: XR ankle RT min 3V PROCEDURE: XR ankle RT min 3V HISTORY: ankle djd COMPARISON: XR ankle right 04/27/2024, fluoroscopy 07/08/2024 FINDINGS: BONES:Mechanical fusion of the ankle joint and hindfoot via intramedullary jesusita and locking screws. Advanced degenerative changes ankle joint. Resection of lateral malleolus. SOFT TISSUES:Images were obtained to cast material which slightly limits evaluation. EFFUSION:None visible. OTHER: Negative. XR/XR ankle RT min 3V IMPRESSION: 1. Mechanical fusion of the ankle joint and hindfoot. Electronically authenticated by: WOLF BAILEY Date: 07/10/2024 08:02
[2024-07-08] MEDS: CEFAZOLIN SODIUM/DEXTROSE,ISO 2 GM/50 ML PIGGYBACK IV (12:18)
--- NOTE | 2024-07-08 12:39 | P.ORON_ITS ---
Brief Operative Note Date of procedure: 07/08/24 Pre-op diagnosis general: Right ankle arthritis, ankle valgus, peroneus brevis contracture, equinus and nicotine dependence Post-op diagnosis: same as pre-op Procedure: Procedure performed: Right ankle and subtalar joint fusion with harvest of tibial bone graft, peroneus brevis tenotomy and tendo Achilles lengthening. Indications for procedure: Patient is a 63-year-old male who presents to me for second opinion regarding his worsening right ankle deformity, pain and dysfunction. He had been treated by multiple supervisor [facility] in the past and treatment has included custom bracing and ambulation with a cane. He was significantly limited in performing activities of daily living due to his severe valgus deformity and severe degenerative joint disease. Given that custom bracing was not helping him enough he was interested in surgical reconstruction. A CT scan was obtained showing severe degenerative changes involving the tibiotalar joint with bony erosion of the lateral aspect of the joint as well as degenerative changes to the subtalar joint with subfibular impingement and severe valgus. I recommended to correct his issue he would need an ankle and hindfoot fusion and discussed potential risks and benefits as well as the postoperative course which would likely include nonweightbearing for a minimum of 8 weeks. He is an active smoker and I related that this will significantly increase his chance of complication including wound dehiscence, infection and nonunion. He is primarily a Monegasque speaker and is most comfortable using an healthcare interpreter although his French is fairly good. All questions were answered to his satisfaction and patient wished to proceed with the above procedures. Patient denies any history of ankle surgery and denies history of ulceration or infection. Intraoperative findings: Reduced ankle joint dorsiflexion with notable equinus and contracture of the lateral soft tissues. There was bone loss and severe erosion noted at the lateral aspect of the tibiotalar joint resulting in substantial valgus deformity. There was nearly 100% cartilage loss and down to subchondral bone throughout the tibiotalar joint. There is approximately 50% full-thickness cartilage loss on the subtalar joint. Bone overall was osteopenic but did bleed appropriately. Due to severe valgus deformity the tibiotalar joint required medial translation and to do this the medial malleolus had to be partially taken down on its lateral aspect. The heel was in severe valgus but was able to be reduced to neutral. No acute signs of infection. Procedure in detail: Patient was identified preoperative holding by myself which time correct side and site were marked and consent was obtained. Regional anesthesia was performed by the anesthesia team and preoperative antibiotics were started as the patient was brought back to the operating theater placed on table in supine position with a thigh tourniquet. General anesthesia was administered and the right lower extremity was prepped and draped in usual sterile fashion. Formal timeout was performed. Due to the severe equinus the Achilles tendon was released using a standard triple hemisection tendo Achilles lengthening through 3 separate stab incisions. Distally and proximally the lateral half of the Achilles was released while the central incision allowed the medial half to be released and significant range of motion improved. Lateral extensile incision along the distal fibula coursing to the sinus tarsi and calcaneocuboid joint was undertaken. Combination of sharp and blunt dissection with all bleeders being coagulated gained access to the peroneus brevis tendon which was sharply released. The lateral collateral ligaments were released and the lateral malleolus was sharply dissected out. An osteotomy of the distal fibula just proximal to the ankle joint was performed with a sagittal saw. Then the lateral malleolus was resected to allow for full exposure of the tibiotalar and subtalar joints. The joints were then prepared for fusion with osteotomes, rongeurs, curettes. But due to the degree of deformity and ancillary linear incision over the medial gutter anteriorly was utilized and a combination of sharp and blunt dissection was performed while protecting neurovascular structures. Access was gained to the medial gutter and a sagittal saw and reciprocating saw was used to remove a portion of the lateral aspect of the medial malleolus. The medial surface of the talus was also prepared for fusion as stated above. This allowed the ankle to be translated medially and the heel to be reduced under the tibia in a neutral position. Then utilizing the sagittal and reciprocating saws the medial aspect of the tibial plafond and was resected and planed to further reduce hindfoot valgus and allow for good bony apposition. This was all done so under the guidance fluoroscopy and a metered stepwise fashion. Once the ankle and hindfoot could be reduced the surgical site was irrigated with with 3 L of normal saline on pulse lavage. A clean rongeur was used to obtain a specimen consisting of bone from the talus and distal tibia due to the amount of bony erosion and osteopenia. The joint surfaces were then drilled with a 2.5 mm drill bit. A longitudinal incision was then placed on the plantar heel and blunt dissection was taken down to the plantar calcaneus. Then a guidepin was placed from the calcaneus across the subtalar and ankle joints and into the distal tibia. Multiple attempts were made to ensure satisfactory position which was somewhat difficult due to the patient's deformity. But once satisfactory alignment of the guidepin could be achieved and opening 8.0 mm followed by a 9.0 mm reamer was utilized to open the calcaneus talus and into the tibial plafond. The guidepin was removed and the tourniquet had reached 119 minutes therefore was deflated. The incisions were temporarily closed with tima with Gelfoam and thrombin and the extremity was allowed to reperfuse. The extremity was elevated above level of heart as well. During this time on the back table bone allograft consisting of 5 cc of SPARC and Proteios was prepared. The tima on the plantar incision were removed and a ball-tipped guidewire was placed through the the canal created in the calcaneus, talus and distal tibia and was inserted into the proximal tibia. Position was confirmed on fluoroscopy. The extremity was allowed to reperfuse for over 30 minutes and to provide added hemostasis the extremity was exsanguinated and the tourniquet was inflated. All tima were removed and the sites were irrigated with copious saline. Then the canal of the tibia was reamed accordingly starting with a 9.5 mm reamer then increasing in size 0.5 mm until 11.5 mm reamer was used noting chatter within the isthmus of the tibia. Reamings were collected using the [employer] bone press system. The calcaneus talus and distal tibia were further reamed to 13.5 mm accordingly as well. Then on the back table the liquid portion of the reamings was poured off using the bone press. Nearly 10 cc of solid graft was obtained and was mixed with the allograft mixture then packed into the fusion sites. The DynaNail was attached to the jig stretching the nitinol compression system to 6mm. Once all graft was packed a 10 x 300 mm DynaNail was placed into the ankle hindfoot and tibial canal accordingly with the use of the jig. Fluoroscopy confirmed proper depth have been achieved and deformity correction was satisfactory. Then a 5.0 mm distal posterior to anterior screw was placed through a 2 cm incision which was placed on the back of the heel followed by a distal cross lock placed lateral to medial also in the calcaneus just distal to the subtalar joint. Next trocars and cannulas were placed approximately in the midshaft of the tibia accordingly and appropriate incisions and blunt dissection was used to get the cannulas down to the tibial crest. A drill was placed from lateral to medial passing into the medial cannula accordingly then manual compression was utilized obtaining 6 mm of compression. Then through the proximal cannula a 5.0 millimeter screw was placed bicortically in the static hole of the nail. The compression jesusita was then removed after releasing the manual compression. An additional 5.0 mm proximal cross lock screw was placed in the dynamic slot accordingly. Fluoroscopy confirmed all hardware placement and the jig was removed and passed the back table. An end cap was placed in the distal aspect of the jesusita. Surgical sites were flushed then 5 cc of Cerament bone void filler was mixed on the back table and once ready was injected into any irregularites and recesses noted on the lateral ankle joint and remaining Cerament was placed into the sinus tarsi. All incisions were then closed in layers and the tourniquet was deflated with a prompt hyperemic response. A dry sterile dressing followed by a multi layer modified Guerrero compression splint was applied. Patient tolerated the procedure and anesthesia well and had brisk capillary refill to the right toes. Patient was then transferred to the PACU for postoperative monitoring and will be transferred to the floor for admission under the hospitalist. Postoperative plan: Transfer to medical surgical unit for observation Plan is for patient to be discharged home and although he lives alone his brother lives nearby and will help take care of him. Patient does have a walker and shower chair and I did recommend that a knee scooter also be obtained. Physical therapy was consulted for gait training to begin tomorrow morning Dr. Ramos the hospitalist was notified Multimodal pain medicine, perioperative antibiotics and Lovenox was ordered Postoperative prescriptions for pain medicine and Lovenox was sent to his pharmacy using my office EMR Strict nonweightbearing to the right lower extremity Will follow Implants: Medline DynaNail Isto Sparc 5cc and Proteios bone allograft Cerament bone void filler 5 cc Anesthesia: regional and General-LMA Surgeon: Young Mariee Estimated blood loss (mL): 100 Pathology: other (bone from talus/tibia) Condition: stable Disposition: PACU
[2024-07-08 13:30] LABS: Glucometer 123 mg/dL (74-106)
[2024-07-08] MEDS: KETOROLAC TROMETHAMINE 30 MG/ML VIAL 15 MG IVP (13:33)
--- NOTE | 2024-07-08 19:08 | P.HP_ITS ---
HPI H&P: HPI History of Present Illness Chief complaint: primary osteoarthritis right ankle Narrative: Patient admitted for podiatric procedure. Denies any other complaints. When I saw patient up in the medical surgical floor, resting comfortably in bed, thick accent but seems to communicate well Opioid HPI Opioid Management Most Recent Pain and Opioid Data: Last Pain Scale 3 07/08/24 13:16 07/08/24 Last Pain Assessment 07/08/24 19:00 [facility] Medical History Idiopathic aseptic necrosis of right ankle ?M87.071 - Idiopathic aseptic necrosis of right ankle (ICD-10) Primary osteoarthritis, right ankle and foot ?M19.071 - Primary osteoarthritis, right ankle and foot (ICD-10) Contracture, right ankle ?M24.571 - Contracture, right ankle (ICD-10) Alcoholism in recovery ?F10.21 - Alcohol dependence, in remission (ICD-10) Acquired hallux interphalangeus of right foot ?M20.11 - Hallux valgus (acquired), right foot (ICD-10) Dislocation of metatarsophalangeal joint of right lesser toe(s), initial encounter ?S93.124A - Dislocation of metatarsophalangeal joint of right lesser toe(s), initial encounter (ICD-10) Hemarthrosis ?M25.00 - Hemarthrosis, unspecified joint (ICD-10) Instability of metatarsophalangeal joint of right foot ?M25.374 - Other instability, right foot (ICD-10) Acquired valgus deformity of right ankle ?M21.071 - Valgus deformity, not elsewhere classified, right ankle (ICD-10) Right ankle pain ?M25.571 - Pain in right ankle and joints of right foot (ICD-10) Aseptic necrosis ?M87.00 - Idiopathic aseptic necrosis of unspecified bone (ICD-10) Syncope (2019) ?R55 - Syncope and collapse (ICD-10) Anemia ?D64.9 - Anemia, unspecified (ICD-10) Bloody diarrhea (2019) ?R19.7 - Diarrhea, unspecified (ICD-10) GERD (gastroesophageal reflux disease) ?K21.9 - Gastro-esophageal reflux disease without esophagitis (ICD-10) Hypertension ?I10 - Essential (primary) hypertension (ICD-10) Surgical History (Updated 06/22/24 @ 10:42 by Sallie Fisher NP) History of colonoscopy (2019) ?Z98.890 - Other specified postprocedural states (ICD-10) Family History (Updated 06/22/24 @ 10:42 by Sallie Fisher NP) Other Family history of diabetes mellitus Social History (Updated 06/22/24 @ 10:28 by Sallie Fisher NP) Within the past year, how often did you have a drink containing alcohol: 2-4 times a month Smoking status: Current some day smoker Non-prescribed substance use: denies use Highest level of school completed/degree received: 6th grade Meds Home Medications and Allergies Home Medications ?Medication ?Instructions ?Recorded ?Confirmed ?Type amlodipine 5 mg tablet 5 mg PO DAILY 06/22/24 07/08/24 History ferrous sulfate 325 mg (65 mg 325 mg PO .three times a week 06/22/24 07/08/24 History iron) tablet losartan 50 mg tablet 100 mg PO DAILY 06/22/24 07/08/24 History meloxicam 15 mg tablet 15 mg PO DAILY 06/22/24 07/08/24 History Allergies Allergy/AdvReac Type Severity Reaction Status Date / Time No Known Drug Allergies Allergy Verified 06/22/24 10:21 Exam Constitutional Vital Signs, click to edit/add: Last Vital Signs Temp 97.6 F 07/08/24 16:00 Pulse 88 07/08/24 16:00 Resp 18 07/08/24 16:00 BP 125/83 07/08/24 16:00 Pulse Ox 92 L 07/08/24 16:00 O2 Del Method Room Air 07/08/24 16:00 Documenting provider has reviewed patient's vital signs: yes Common normals: no apparent distress Chest Common normals: inspection of chest normal Respiratory Common normals: normal respiratory effort and no retractions; not clear to ascultation bilaterally Auscultation: wheezes (Faint wheeze) Cardio Common normals: regular rate and regular rhythm Results Labs Labs: Short CBC 07/08/24 Range/Units 06:38 WBC 4.7 (4.0-11.0) 10^3/uL Hgb 15.2 (14.0-18.0) g/dL Hct 44.7 (42.0-54.0) % Plt Count 199 (150-450) 10^3/uL Assessment and Plan Assessment and Plan (1) Idiopathic aseptic necrosis of right ankle: (2) Primary osteoarthritis, right ankle and foot: (3) Alcoholism in recovery: (4) GERD (gastroesophageal reflux disease): (5) Hypertension: Plan Admission findings: Patient admitted after podiatric procedure. See operative report Hypertension-continue with home medications History of alcohol abuse patient denies current drinking History of smoking in the past-does have a faint wheeze this may be her secondary to the surgery. Patient denies shortness of breath. Reevaluate in a.m. Admission status: Patient admitted after podiatric procedure into the surgical outpatient setting. Reevaluate in AM. Urinary Catheter Management Urinary Catheter Management Urethral: Cath placed during this visit: no
[2024-07-08] MEDS: CHOLECALCIFEROL (VITAMIN D3) 125 MCG/5,000 UNIT TABLET PO (19:39)
[2024-07-08] MEDS: ACETAMINOPHEN 500 MG TABLET 1000 MG PO ×2 (19:39→23:06)
[2024-07-08] MEDS: CEFAZOLIN SODIUM/DEXTROSE,ISO 1 GM/50 ML PREMIX IV (21:18)
[2024-07-08] MEDS: 0.9 % SODIUM CHLORIDE 250 ML 10 ML IV (21:19)
[2024-07-08] MEDS: ENOXAPARIN SODIUM 40 MG/0.4 ML SYRINGE SUBQ (21:19)
[2024-07-08] MEDS: PREGABALIN 75 MG CAPSULE PO (21:19)
[2024-07-09 03:00] VITALS: BP 119/79; PULSE 82; TEMP 36.7; O2SAT 92
--- NOTE | 2024-07-09 03:23 | PC.NURSE ---
Denies any numbness, or tingling to right foot. Unable to check pedal pulses due to cast. Denies any pain. Can't move toes just yet or feel nurse touching exposed toes.
[2024-07-09] MEDS: CEFAZOLIN SODIUM/DEXTROSE,ISO 1 GM/50 ML PREMIX IV ×2 (05:13→13:23)
[2024-07-09] MEDS: ACETAMINOPHEN 500 MG TABLET 1000 MG PO ×2 (05:13→11:04)
[2024-07-09 05:55] LABS: Basophils Percent Auto 0.1 % (0.2-2.0); Hemoglobin 12.5 g/dL (14.0-18.0); Immature Granulocytes Abs Auto 0.04 10^3/uL (0.00-0.03); Immature Granulocytes Pct Auto 0.4 % (0.0-0.5); Lymphocytes Absolute Auto 0.7 10^3/uL (1.2-3.8); Lymphocytes Percent Auto 7.7 % (20.5-60.0); Mean Corpuscular HGB Conc 33.8 g/dL (29.9-35.2); Mean Corpuscular Hemoglobin 32.2 pg (25.9-34.0); Mean Corpuscular Volume 95.4 fL (80.0-94.0); Mean Platelet Volume 9.5 fL (9.5-13.5); Monocytes Absolute Auto 0.9 10^3/uL (0.3-0.8); Monocytes Percent Auto 9.6 % (1.7-12.0); Neutrophils Absolute Auto 7.8 10^3/uL (1.4-6.5); Neutrophils Percent Auto 82.2 % (43.0-75.0); Platelet Count 197 10^3/uL (150-450); Red Blood Count 3.88 10^6/uL (4.70-6.10); Red Cell Distribution Width 12.2 % (11.0-15.0); White Blood Count 9.5 10^3/uL (4.0-11.0)
[2024-07-09 06:11] LABS: Alanine Aminotransferase 37 U/L (16-63); Albumin Level 3.2 g/dL (3.4-5.0); Alkaline Phosphatase 90 U/L (46-116); Anion Gap 12.1; Aspartate Amino Transferase 29 U/L (15-37); BUN Creatinine Ratio 18.4; Bilirubin Total 0.8 mg/dL (0.2-1.0); Calcium 8.7 mg/dL (8.5-10.1); Carbon Dioxide 29.3 mmol/L (21.0-32.0); Chloride 106 mmol/L (98-107); Estimated GFR (African America >60 (>=60 mL/min/1.73m^2); Estimated GFR (Non-African Ame >60 (>=60 mL/min/1.73m^2); Globulin 3.3 g/dL; Glucose 114 mg/dL (74-106); Potassium 4.4 mmol/L (3.5-5.1); Sodium 143 mmol/L (136-145); Total Protein 6.5 g/dL (6.4-8.2)
--- NOTE | 2024-07-09 06:21 | P.DS_ITS ---
DS: Providers Provider Primary care physician: Non-Staff Physician, Consults: 07/08/24 11:18 Physical Therapy Eval and Treat Routine Reason for consultation: gait training Has provider been notified: No 07/08/24 19:05 Occupational Therapy Eval and Treat Routine Reason for consultation: Only if needed for Rehab Has provider been notified: No Physical Therapy Eval and Treat Routine Reason for consultation: Eval and Treat Has provider been notified: No DS: Diagnosis Discharge Diagnosis (1) Idiopathic aseptic necrosis of right ankle: (2) Primary osteoarthritis, right ankle and foot: (3) Alcoholism in recovery: (4) GERD (gastroesophageal reflux disease): (5) Hypertension: Plan Admission findings: Patient admitted after podiatric procedure. See operative report Hypertension-continue with home medications History of alcohol abuse patient denies current drinking History of smoking in the past-does have a faint wheeze this may be her secondary to the surgery. Patient denies shortness of breath. Reevaluate in a. m. Admission status: Patient admitted after podiatric procedure into the surgical outpatient setting. Reevaluate in AM. DS: Summary Hospital Course Hospital Course: Patient admitted for podiatric procedure, see operative note, this is for severe arthritis. Pain control well-established the following day. At this point he feels he can safely get around at home. Will have physical therapy work with patient if he is able to get around safely patient can be discharged home in improving condition. Medications see list. Follow-up with PCP within the next week. Follow-up with podiatry per protocol Status at Discharge Overall status at discharge: patient is not back to baseline Time Spent with Patient Time attestation: Total time spent providing and/or coordinating discharge services: Time spent: greater than 30 minutes Exam Constitutional Vital Signs, click to edit/add: Last Vital Signs Temp 98.1 F 07/09/24 03:00 Pulse 82 07/09/24 03:00 Resp 20 07/09/24 03:00 BP 119/79 07/09/24 03:00 Pulse Ox 92 L 07/09/24 03:00 O2 Del Method Room Air 07/09/24 03:00 Documenting provider has reviewed patient's vital signs: yes Common normals: no apparent distress Chest Common normals: inspection of chest normal Respiratory Common normals: normal respiratory effort and no retractions; not clear to ascultation bilaterally Auscultation: wheezes (Faint wheeze) Cardio Common normals: regular rate and regular rhythm DS: Data Data Completed and Pending Labs on day of discharge: Labs from last 24 hours 07/09/24 07/08/24 07/08/24 04:55 13:29 06:59 WBC 9.5 RBC 3.88 L Hgb 12.5 L Hct 37.0 L MCV 95.4 H MCH 32.2 MCHC 33.8 RDW 12.2 Plt Count 197 MPV 9.5 Neut % (Auto) 82.2 H Lymph % (Auto) 7.7 L [place] % (Auto) 9.6 Eos % (Auto) 0.0 L Baso % (Auto) 0.1 L Neut # (Auto) 7.8 H Lymph # (Auto) 0.7 L [place] # (Auto) 0.9 H Eos # (Auto) 0.0 Baso # (Auto) 0.0 Abs Immat Gran (auto) 0.04 H Imm/Tot Granulo (auto) 0.4 Sodium 143 Potassium 4.4 Chloride 106 Carbon Dioxide 29.3 Anion Gap 12.1 BUN 18.0 Creatinine 0.98 Est GFR ( Amer) >60 Est GFR (Non-Af Amer) >60 BUN/Creatinine Ratio 18.4 Glucose 114 H Calcium 8.7 Total Bilirubin 0.8 AST 29 ALT 37 Alkaline Phosphatase 90 Total Protein 6.5 Albumin 3.2 L Globulin 3.3 Albumin/Globulin Ratio 1.0 POC Glucose 123 H 80 07/08/24 06:38 WBC 4.7 RBC 4.69 L Hgb 15.2 Hct 44.7 MCV 95.3 H MCH 32.4 MCHC 34.0 RDW 12.2 Plt Count 199 MPV 9.2 L Neut % (Auto) 59.3 Lymph % (Auto) 22.0 [place] % (Auto) 9.7 Eos % (Auto) 7.4 H Baso % (Auto) 0.8 Neut # (Auto) 2.8 Lymph # (Auto) 1.0 L [place] # (Auto) 0.5 Eos # (Auto) 0.4 Baso # (Auto) 0.0 Abs Immat Gran (auto) 0.04 H Imm/Tot Granulo (auto) 0.8 H Sodium Potassium Chloride Carbon Dioxide Anion Gap BUN Creatinine Est GFR ( Amer) Est GFR (Non-Af Amer) BUN/Creatinine Ratio Glucose Calcium Total Bilirubin AST ALT Alkaline Phosphatase Total Protein Albumin Globulin Albumin/Globulin Ratio POC Glucose Discharge Plan Discharge Disposition: Home, Self-Care Condition: Good Discharge Medications: No Action amlodipine 5 mg tablet 5 mg PO DAILY ferrous sulfate 325 mg (65 mg iron) tablet 325 mg PO .three times a week losartan 50 mg tablet 100 mg PO DAILY meloxicam 15 mg tablet 15 mg PO DAILY Follow Up Appointments: see Dr Mariee on Jul 13 @ 1pm #[phone] Activity: ambulate only with your walker Activity Restrictions/Additional Instructions: non weight bearing to right lower extremity Diet: advance to your usual diet Print Language: Surinamese Patient Instructions: Non Weight Bearing Activity (DC), After Arthrodesis (DC) Discharge Date/Time: 07/09/24 15:03
--- NOTE | 2024-07-09 08:19 | CM.NOTE ---
Rounds made with Dr. Ramos, discussed with pt about possible discharge to home today. Dr. Mariee will see pt today for any further recommendations. Pt will f/u with PCP and Dr. Mariee.
[2024-07-09] MEDS: PREGABALIN 75 MG CAPSULE PO (09:27)
[2024-07-09] MEDS: CHOLECALCIFEROL (VITAMIN D3) 125 MCG/5,000 UNIT TABLET PO (09:27)
[2024-07-09 09:31] VITALS: BP 110/77; PULSE 74; TEMP 36.4; O2SAT 91
--- NOTE | 2024-07-09 10:48 | SWNOTE1 ---
SW met with pt to discuss dc needs. Pt does live home alone. Pt's brother and other friends live close by and will be assisting pt at home. Pt voiced he has a scooter, walker, and shower chair at home. Pt asked if he could take a bedside urinal, SW advised to check with nurse. Pt does have steps in the home, but he is going to scoot up them or his brother/friends will assist if needed. Pt has no concerns about going home and voiced he is going to go slow and take it easy during recovery.
[2024-07-09] MEDS: FERROUS SULFATE 325 MG TABLET PO (11:04)
[2024-07-09 11:55] VITALS: O2SAT 91
== END 2024-07-09 15:03 | disposition home or self-care (01) ==
LOC: SURGOUT 06:27 → MS 14:09
PROVIDERS: Anesthesiology; Family Medicine; Visit Provider Podiatrist Foot & Ankle Surgery
PROC: (CPT 1470; principal; 2024-07-08 08:00)
DX: M19.071 Primary osteoarthritis, right ankle and foot (principal); M21.071 Valgus deformity, not elsewhere classified, right ankle; F10.21 Alcohol dependence, in remission; M87.071 Idiopathic aseptic necrosis of right ankle; K21.9 Gastro-esophageal reflux disease without esophagitis; M24.571 Contracture, right ankle; M24.574 Contracture, right foot; M85.871 Other specified disorders of bone density and structure, right ankle and foot; F17.210 Nicotine dependence, cigarettes, uncomplicated
CPT/HCPCS: 20902; 27606; 27685; 27870; 28725; 36415; 64445; 64450; 73610; 76000; 76942; 80053; 82948; 85025; 87070; 87075; 87102; 87116; 87176; 87205; 87206; 94761; 97116; 97161; 97165; 99999; C1713; C1776; J0131; J0690; J1100; J1650; J1885; J2250; J2371; J2405; J2704; J2795; J3010

== ENCOUNTER 2024-07-27 09:12 | Outpatient (OUT) | payer OTHER, SELFPAY ==
--- NOTE | 2024-07-27 | XR_ITS ---
The [address] [address] Patient Name: EYAD HOSKINS MRN: [id number] date: 1960 Sex: M Assigned Patient Location: [facility] Current Patient Location: Accession/Order Number: [id number] Exam Date: 07/27/2024 09:15 Report Date: 07/28/2024 07:16 At the request of: JG CARRASQUILLO Procedure: XR ankle RT min 3V PROCEDURE: XR ankle RT min 3V COMPARISON: 07/08/2024 HISTORY: RIGHT ANKLE PAIN FINDINGS: BONES:No ankle fusion utilizing a retrograde intramedullary jesusita and proximally and distally. Partial bony fusion across the tibiotalar and talonavicular joints. Stable remote resection of the distal fibula SOFT TISSUES:Negative. No visible soft tissue swelling. EFFUSION:None visible. OTHER: Stable soft tissue calcifications XR/XR ankle RT min 3V IMPRESSION: Stable ankle fusion with partial bony bridging Electronically authenticated by: ALICJA ALEJANDRA Date: 07/28/2024 07:16
== END 2024-07-27 09:13 | disposition home or self-care (01) ==
LOC: RAD 09:12
PROVIDERS: Visit Provider Podiatrist Foot & Ankle Surgery
DX: M25.571 Pain in right ankle and joints of right foot (principal); M24.671 Ankylosis, right ankle
CPT/HCPCS: 73610

== ENCOUNTER 2024-08-31 09:18 | Outpatient (OUT) | payer OTHER, SELFPAY ==
--- NOTE | 2024-08-31 | XR_ITS ---
[address] [address] Patient Name: EYAD HOSKINS MRN: [id number] date: 1960 Sex: M Assigned Patient Location: [facility] Current Patient Location: [facility] Accession/Order Number: [id number] Exam Date: 08/31/2024 09:25 Report Date: 08/31/2024 22:06 At the request of: JG CARRASQUILLO Procedure: XR ankle RT min 3V EXAM: XR ankle RT min 3V HISTORY: RIGHT ANKLE PAIN COMPARISON: 07/27/2024 FINDINGS/IMPRESSION: 1. No acute fracture or dislocation. 2. Intramedullary jesusita extending from the distal aspect of the tibia through the ankle and subtalar joints. There is a distal interlocking screw at the calcaneus. There are proximal interlocking screws of the intramedullary jesusita. 3. Mild degeneration of the mid foot. 4. Resection of the distal fibula. 5. Subcutaneous soft tissue edema about the ankle. Electronically authenticated by: NAYLA QUINONES Date: 08/31/2024 22:06
== END 2024-08-31 09:19 | disposition home or self-care (01) ==
LOC: RAD 09:18
PROVIDERS: Visit Provider Podiatrist Foot & Ankle Surgery
DX: M25.571 Pain in right ankle and joints of right foot (principal); M25.471 Effusion, right ankle
CPT/HCPCS: 73610

== ENCOUNTER 2024-09-21 09:22 | Outpatient (OUT) | payer OTHER, SELFPAY ==
--- NOTE | 2024-09-21 | XR_ITS ---
[address] [address] Patient Name: EYAD HOSKINS MRN: [id number] date: 1960 Sex: M Assigned Patient Location: [facility] Current Patient Location: [facility] Accession/Order Number: [id number] Exam Date: 09/21/2024 09:24 Report Date: 09/21/2024 10:36 At the request of: JG CARRASQUILLO Procedure: XR ankle RT min 3V PROCEDURE: XR ankle RT min 3V COMPARISON: 08/31/2024 HISTORY: RIGHT ANKLE PAIN FINDINGS: BONES:Stable ankle fusion utilizing a retrograde intramedullary nail. There is bony bridging across the tibiotalar joint. Remote distal fibular resection. SOFT TISSUES:Negative. No visible soft tissue swelling. EFFUSION:None visible. OTHER: Negative. XR/XR ankle RT min 3V IMPRESSION: Stable ankle fusion Electronically authenticated by: ALICJA ALEJANDRA Date: 09/21/2024 10:36
--- OUTSIDE RECORDS SUMMARY | 2024-09-21 09:40 | XMS_ITS | CCD ---
Author Organization [facility] Care Team Providers Care Fisher Swordfish Name Role Phone PAPI GARDINER Admitting Unavailable PAPI GARDINER Attending Unavailable [facility] Primary Care Unava ilable PAPI GARDINER Consulting Unavailable CHEPE POZO Consulting Unavailable Anglim CLINICAL NURSING INTERN-Nitza BENZ Primary Care Provider PAPI GARDINER Attending Unavailable PAPI GARDINER Attending Unavailable PAPI GARDINER Attending Unavailable IRINA LEI Attending Unavailable NITZA DURAN Referring Unavailable IRINA LEI Referring Unavailable PAPI GARDINER Attending Unavailable PAPI GARDINER Attending Unavailable PAPI GARDINER Referring Unavailable STACY, PAPI Campbell Attending Unavailable PAPI GARDINER Attending Unavailable PAPI GARDINER Attending Unavailable Unallocated , [facility] Provider Primary Care Provi marga JOCELYN, [...] Chevy Benjamin MD on 07/01/2024 9:42 AM Normal [facility] MRI ANKLE RT WO CONon 2021 MRI [...] loss and marked joint space narrowing with wvyh-un-wgkl contact. 2. There is a moderate to [...] authenticated by: CHEPE POZO Date: 2021-10-08 14:08 Normal [facility] Encounters Encounter Date Encounter Type Care Provider Facility Start: 07-01-2024 End: 07-01-[address] [facility] Start: 07-01-2024 Encounter for other preprocedural examination [facility] Start: 05-30-2024 End: 05-31-2024 Refill Papi Gardiner DPM Work Phone: [facility] Comment on above: DJD (degenerative darion [...] 11-25-2023 Telephone encounter Ivet FORD Work Phone: [facility] Start: 11-11-2023 End: 11-11-2023 ambulatory IRINA LEI Not Available Start: 11-06-2023 End: 11-06-2023 ambulatory PAPI GARDINER Not Available Start: 09-11-2023 End: 09-11-2023 ambulatory PAPI Shannan GARDINER Not Available Start: 08-07-2023 End: 08-07-2023 ambulatory PAPI Shannan GARDINER Not Available Start: 07-10-2023 End: 07-10-2023 ambulatory PAPI Shannan GARDINER Not Available Start: 10-08-2021 End: 10-09-2021 ambulatory PAPI GARDINER Facility: Plan of Treatment Date Care Activity Detail Author Start: 08-13-2024 Tobacco Counseling Tobacco Counseling [facility] Start: 05-21-2024 Adult BMI Screening Adult BMI Screening [facility] Start: 05-21-2024 Tobacco Screening Tobacco Screening [facility] Start: 04-25-2024 Influenza vaccination [facility] Start: 04-25-2023 COVID-19 Vaccine ( season) COVID-19 Vaccine ( season) [facility] Start: 2011 Administration of varicella zoster vaccine Zoster (Shingles) Vaccine (1 of 2) [facility] Start: 1980 DTaP,Tdap and Td Vaccines (1 - Tdap) DTaP,Tdap and Td Vaccines (1 - Tdap) [facility] Start: 1979 Adult BMI Follow Up Plan Adult BMI Follow Up Plan [facility] Start: 1973 Depression Screening Depression Screening [facility] Start: 1961 Screening for malignant neoplasm of colon [facility] Immunizations Immunization Date Immunization Notes Care Provider Fa cili 09-06-2023 zoster vaccine recombinant Papi Gardiner DPM Work Phone: [facility] 07-06-2023 zoster vaccine recombinant Papi Gardiner DPM Work Phone: [facility] 05-22-2022 influenza, injectabl e, quadrivalent, preservative free Papi Gardiner DPM Work Phone: [facility] 05-22-2022 influenza virus vacc ine, unspecified formulation Ivet Tamayo CLINICAL NURSING INTERN-KEYCASE ASSEMBLER Work Phone: [facility] 07-14-2020 influenza, injectabl e, quadrivalent, preservative free Ivet Tamayo CLINICAL NURSING INTERN-KEYCASE ASSEMBLER Work Phone: [facility] 07-14-2020 pneumococcal polysaccharide vaccine, 23 valent Ivet Tamayo CLINICAL NURSING INTERN-KEYCASE ASSEMBLER Work Phone: [facility] Payers Date Payer Category Payer Medicaid [id number] 2019 Medicaid [id number] 1960 Unknown [id number] 2.16.84 0.1.347656.3.579.2.593 1961 Unknown [id number] 2.16.84 0.1.026251.3.579.2.1259 1961 Unknown [id number] 2.16.84 0.1.875137.3.579.2.1259 1961 Unknown [id number] 2.16.84 0.1.449169.3.579.2.1259 1961 Unknown [id number] 2.16.84 0.1.793973.3.579.2.1259 1961 Unknown [id number] 2.16.84 0.1.796587.3.579.2.1259 1961 Unknown [id number] 2.16.84 0.1.582151.3.579.2.1259 1961 Unknown [id number] 2.16.84 0.1.298148.3.579.2.1259 1961 Unknown [id number] 2.16.84 0.1.293510.3.579.2.1259 1961 Unknown [id number] 2.16.84 0.1.735029.3.579.2.1259 1961 Unknown [id number] 2.16.84 0.1.342056.3.579.2.1259 1961 Unknown [id number] 2.16.840 .1.886271.3.579.2.1259 1961 Unknown [id number] 2.16.840 .1.398921.3.579.2.1259 1961 Unknown [id number] 2.16.8 40.1.046943.3.579.2.1286 1961 Unknown [id number] 2.16.8 40.1.964931.3.579.2.1286 1959 Unknown [id number] Social History Date Type Detail Facility Start: 02-11-2023 End: 05-29-2023 Tobacco smoking status NHIS Occasional tobacco smoker [facility] History of tobacco use Cigarette Smoker [facility] Start: 02-11-2023 End: 04-15-2024 Cigarettes smoked current (pack per day) - Reported 1.5 [facility] Start: 02-11-2023 End: 05-29-2023 Tobacco use and exposure Smokeless tobacco non-user [facility] Start: 05-21-2023 End: 04-15-2024 Alcohol intake Current drinker of alcohol (finding) [facility] Start: 07-14-2020 End: 04-15-2024 Social connection and isolation panel [facility] In a typical week, how many times do you talk on the telephone with family, friends, or neighbors? Patient declined [facility] How often to you hav e a drink containing alcohol? 2-3 time sa week [facility] How many standard drinks containing alcohol do you have on a typical day? 10 or more [facility] How often do you hav e 6 or more drinks on 1 occasion? Daily or almost daily [facility] How hard is it for you to pay for the very basics like food, housing, medical care, and heating Somewhat hard [facility] Do you feel stress - tense, restless, nervous, or anxious, or unable to sleep at night because your mind is troubled all the time - these days [OSQ] To some extent [facility] Start: 02-11-2023 Tobacco Comment only when drinking P [facility] Start: 07-17-2020 Alcohol Comment mostly beer. H as not had a drink since last Friday. [facility] Start: 1960 Sex Assigned At Not on file P [facility] NEGATED: Highlighted rowStart: NINF History of tobacco [...] different from the original. Called [facility] as we received a screening colonoscopy referral from Nitza Plaza NP notes say that had last colonoscopy in [place]. But upon looking into patient's chart, last colonoscopy was 07/15/[address] Abrams with a 5 year recall. Spoke to Emmie at [facility] and informed her of the recall, she states that she will let Nitza Duran NP know. documented in this encounter [facility] Telephone encounter Note 11-25-2023 Telephone Encounter - Robyn Betancourt - 11/25/2023 2:48 PM EDT Note Date & Type Note Facility 11-25-2023 Telephone encount er Note Called [facility] as we received a screening colonoscopy referral from Nitza Plaza NP notes say that had last colonoscopy in [place]. But upon looking into patient's chart, last colonoscopy was 07/15/[address] Abrams with a 5 year recall. Spoke to Emmie at [facility] and informed her of the recall, she states that she will let Nitza Duran NP know. [facility] Evaluation note Note Date & Type Note Facility Evaluation note Diagnosis DJD (degenerative joint disease), ankle and foot, left DJD (degenerative joint disease), ankle and foot, right documented in this encounter [facility] Instructions Note Date & Type Note Facility Instructions Not on filedocumented in this en counter [facility] Summary Purpose Family History No [...] content) DATE CREATED AUTHOR 10/12/2021 [facility] DATE CREATED AUTHOR AUTHOR'S ORGANIZ ATION 04/17/2024 [facility] Specialists EPIC DATE CREATED AUTHOR AUTHOR'S ORGANIZ ATION 07/03/2024 [facility] Care Teams (unrecognized sec tion and content) Fisher Swordfish Relationship Specialty Start Date End Date Nitza Duran, CLINICAL NURSING INTERN-KEYCASE ASSEMBLER [address] [place] [address] PCP - General Family Medicine 01/27/23 Fisher Swordfish Relationship Specialty Start Date End Date Unallocated, Noms Provider, [address] [place], [place] [id number] PCP - General Family Medicine 08/07/23 Reason [...] BE BASED ON THE PRIMARY CLINICAL RECORDS. [employer] [facility]. provides no warranty or guarantee of the accuracy or completeness of information in this document.
== END 2024-09-21 09:23 | disposition home or self-care (01) ==
LOC: RAD 09:23
PROVIDERS: Visit Provider Podiatrist Foot & Ankle Surgery
DX: M25.571 Pain in right ankle and joints of right foot (principal); M24.671 Ankylosis, right ankle
CPT/HCPCS: 73610

== ENCOUNTER 2024-09-22 07:54 | Outpatient (RCR) | payer OTHER, SELFPAY | END 2024-12-31 07:40 | disposition home or self-care (01) | LOC: PT 07:54 | PROVIDERS: Visit Provider Podiatrist Foot & Ankle Surgery | DX: M25.571 Pain in right ankle and joints of right foot (principal) | CPT/HCPCS: 97110; 97112; 97140; 97162 ==

== ENCOUNTER 2024-10-13 10:01 | Outpatient (OUT) | payer OTHER, SELFPAY ==
--- NOTE | 2024-10-13 | XR_ITS ---
[facility] [place] [id number] Patient Name: EYAD HOSKINS MRN: [id number] date: 1960 Sex: M Assigned Patient Location: Current Patient Location: Accession/Order Number: [id number] Exam Date: 10/14/2024 10:03 Report Date: 10/14/2024 10:08 At the request of: JG CARRASQUILLO DPMonica Procedure: XR ankle RT min 3V RIGHT ANKLE - 3 views CLINICAL DATA: Right lower leg pain. Prior history of ankle surgery. COMPARISON: 08/31/2024 AP, lateral and oblique views were obtained. 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 There is fusion at the ankle with bony hypertrophy and a jesusita extending from the mid to upper tibial shaft down to the calcaneus. There are interlocking screws at the tibial shaft and calcaneus. These findings are similar. There is no developing fracture or dislocation. Mild soft tissue swelling is present at the ankle. XR/XR ankle RT min 3V IMPRESSION: STABLE POSTOPERATIVE CHANGES. NO ACUTE BONY FINDINGS. Impression dictated by: Mckayla Benito M.D.10/14/2024 10:08 AM Dictation Location[facility] Electronically authenticated by: [id number] Y Date: 10/14/2024 10:08
--- OUTSIDE RECORDS SUMMARY | 2024-10-13 10:07 | XMS_ITS | CCD ---
Demographics Address [address] [place] [address] Preferred Language en Marital Status Single Amish Affiliation Unknown Race Unknown Ethnic Group or Author Organization [facility] Care Team Providers Care Impact Retail Service Merchandiser Name Role Phone PAPI GARDINER Admitting Unavailable PAPI GARDINER Attending Unavailable [facility] Primary Care Unava ilable PAPI GARDINER Consulting Unavailable CHEPE POZO Consulting Unavailable PAPI GARDINER Attending Unavailable STACY, PAPI Campbell Attending Unavailable PAPI GARDINER Attending Unavailable RUSHER, IRINA Chavarria Attending Unavailable ANGHILLARY, NITZA Referring Unavailable RUSHER, IRINA Chavarria Referring Unavailable PAPI GARDINER Attending Unavailable PAPI GARDINER Attending Unavailable STACY, PAPI A Referring Unavailable BROWN, PAPI Campbell Attending Unavailable STACY, PAPI Campbell Attending Unavailable STACY, PPAI Campbell Attending Unavailable Unallocated MD, [facility] Provider Primary Care Provi marga JOCELYN, USHA Referring Unavailable ANGLIM, NITZA A Primary Care Unavailable JOCELYN, USHA Referring Unavailable ANGLIM, NITZA A Primary Care Unavailable Anglim CLARITY DEVELOPER-CHANCELLORNitza A Primary Care Provider Medications Current Medications Medication Drug Class(es) Dates [...] Benjamin MD on 07/01/2024 9:42 AM Normal [facility] MRI ANKLE RT WO CONon 2021 [...] loss and marked joint space narrowing with xqwg-uu-hpif contact. 2. There is a moderate to [...] by: CHEPE POZO Date: 2021-10-08 14:08 Normal [facility] Encounters Encounter Date Encounter Type Care Provider Facility Start: 07-01-2024 End: 07-01-2024 ambulatory [facility] Start: 07-01-2024 Encounter for other preprocedural examination [facility] Start: 05-30-2024 End: 05-31-2024 Refill Papi Gardiner DPM Work Phone: [facility] Comment on above: DJD (degenerative [...] 11-25-2023 Telephone encounter Ivet FORD Work Phone: [facility] Start: 11-11-2023 End: [...] Start: 08-13-2024 Tobacco Counseling Tobacco Counseling [facility] Start: 05-21-2024 Adult BMI Screening Adult BMI Screening [facility] Start: 05-21-2024 Tobacco Screening Tobacco Screening [facility] Start: 04-25-2024 Influenza vaccination [facility] Start: 04-25-2023 COVID-19 Vaccine ( season) COVID-19 Vaccine ( season) [facility] Start: 2011 Administration of varicella zoster vaccine Zoster (Shingles) Vaccine (1 of 2) [facility] Start: 1980 DTaP,Tdap and Td Vaccines (1 - Tdap) DTaP,Tdap and Td Vaccines (1 - Tdap) [facility] Start: 1979 Adult BMI Follow Up Plan Adult BMI Follow Up Plan [facility] Start: 1973 Depression Screening Depression Screening [facility] Start: 1961 Screening for malignant neoplasm of colon [facility] Immunizations Immunization Date Immunization Notes Care Provider Fa fabiola 09-06-2023 zoster vaccine recombinant Papi Gardiner DPM Work Phone: [facility] 07-06-2023 zoster vaccine recombinant Papi Gardiner DPM Work Phone: [facility] 05-22-2022 influenza, injectabl e, quadrivalent, preservative free Papi Gardiner DPM Work Phone: [facility] 05-22-2022 influenza virus vacc ine, unspecified formulation Ivet Tamayo CLARITY DEVELOPER-CHANCELLOR Work Phone: [facility] 07-14-2020 influenza, injectabl e, quadrivalent, preservative free Ivet Tamayo CLARITY DEVELOPER-CHANCELLOR Work Phone: [facility] 07-14-2020 pneumococcal polysaccharide vaccine, 23 valent Ivet Tamayo CLARITY DEVELOPER-CHANCELLOR Work Phone: [facility] Payers Date Payer Category Payer Medicaid [id number] 2019 Medicaid [id number] 1960 Unknown [id number] 2.16.84 0.1.448258.3.579.2.593 1961 Unknown [id number] 2.16.84 0.1.806391.3.579.2.1259 1961 Unknown [id number] 2.16.84 0.1.114911.3.579.2.1259 1961 Unknown [id number] 2.16.84 0.1.082250.3.579.2.1259 1961 Unknown [id number] 2.16.84 0.1.423082.3.579.2.1259 1961 Unknown [id number] 2.16.84 0.1.534647.3.579.2.1259 1961 Unknown [id number] 2.16.84 0.1.268377.3.579.2.1259 1961 Unknown [id number] 2.16.84 0.1.072511.3.579.2.1259 1961 Unknown [id number] 2.16.84 0.1.446965.3.579.2.1259 1961 Unknown [id number] 2.16.84 0.1.601337.3.579.2.1259 1961 Unknown [id number] 2.16.84 0.1.627044.3.579.2.1259 1961 Unknown [id number] 2.16.840 .1.136613.3.579.2.1259 1961 Unknown [id number] 2.16.840 .1.206312.3.579.2.1259 1961 Unknown [id number] 2.16.8 40.1.782600.3.579.2.1286 1961 Unknown [id number] 2.16.8 40.1.480502.3.579.2.1286 1959 Unknown [id number] Social History Date Type Detail Facility Start: 02-11-2023 End: 10-05-2023 Tobacco smoking status NHIS Occasional tobacco smoker [facility] History of tobacco use Cigarette Smoker [facility] Start: 02-11-2023 End: 05-29-2023 Tobacco use and exposure Smokeless tobacco non-user [facility] Start: 05-21-2023 End: 04-15-2024 Alcoholic beverage intake Current drinker of alcohol (finding) [facility] Start: 10-05-2020 End: 04-15-2024 Alcoholic beverage intake [facility] Start: 10-05-2020 End: 04-15-2024 Tobacco use panel [facility] Start: 1960 Sex assigned at Not on file [facility] In a typical week, how many times do you talk on the telephone with family, friends, or neighbors? Patient declined [facility] How often to you hav e a drink containing alcohol? 2-3 time sa week [facility] How many standard drinks containing alcohol do you have on a typical day? 10 or more [facility] How often do you hav e 6 or more drinks on 1 occasion? Daily or almost daily [facility] How hard is it for you to pay for the very basics like food, housing, medical care, and heating Somewhat hard [facility] Do you feel stress - tense, restless, nervous, or anxious, or unable to sleep at night because your mind is troubled all the time - these days [OSQ] To some extent [facility] Start: 02-11-2023 Tobacco Comment only when drinking P [facility] Start: 07-17-2020 Alcohol Comment mostly beer. H as not had a drink since last Friday. [facility] NEGATED: Highlighted rowStart: NINF History of tobacco [...] might be different from the original. Called [facility] as we received a screening colonoscopy referral from Nitza Plaza NP notes say that had last colonoscopy in [place]. But upon looking into patient's chart, last colonoscopy was 07/15/[address] Abrams with a 5 year recall. Spoke to Emmie at [facility] and informed her of the recall, she states that she will let Nitza Duran NP know. documented in this encounter [facility] [employer] [facility] Telephone encounter Note 11-25-2023 Telephone Encounter - Robyn Betancourt - 11/25/2023 2:48 PM EDT Note Date & Type Note Facility 11-25-2023 Telephone encount er Note Called [facility] as we received a screening colonoscopy referral from Nitza Plaza NP notes say that had last colonoscopy in [place]. But upon looking into patient's chart, last colonoscopy was 07/15/[address] Abrams with a 5 year recall. Spoke to Emmie at [facility] and informed her of the recall, she states that she will let Nitza Duran NP know. [facility] Evaluation note Note Date & Type Note Facility Evaluation note Diagnosis DJD (degenerative joint disease), ankle and foot, left DJD (degenerative joint disease), ankle and foot, right documented in this encounter [facility] Instructions Note Date & Type Note Facility Instructions Not on filedocumented in this en counter [facility] Summary Purpose Family History No Family [...] CREATED AUTHOR AUTHOR'S ORGANIZ ATION 04/17/2024 [facility] Specialists EPIC DATE CREATED AUTHOR AUTHOR'S ORGANIZ ATION 07/03/[address] [facility] Reason for Visit (unrecogniz ed section and content) Reason Comments Med Refill Care Teams (unrecognized sec tion and content) Impact Retail Service Merchandiser Relationship Specialty Start Date End Date Unallocated, Noms Provider, [address] [place] [address] PCP - General Family Medicine 08/07/23 Impact Retail Service Merchandiser Relationship Specialty Start Date End Date Nitza Duran APRN-CHANCELLOR [address] [place], [place] [id number] PCP - General Family Medicine 01/27/23 FOR [...] BE BASED ON THE PRIMARY CLINICAL RECORDS. [employer] provides no warranty or guarantee of the accuracy or completeness of information in this document.
== END 2024-10-13 10:02 | disposition home or self-care (01) ==
LOC: EC 10:02
PROVIDERS: Visit Provider Podiatrist Foot & Ankle Surgery
DX: M25.571 Pain in right ankle and joints of right foot (principal); M24.671 Ankylosis, right ankle
CPT/HCPCS: 73610